=== PATIENT | male | born 1980 | race African-American/Black ===

== ENCOUNTER 2016-09-25 23:25 | Emergency (ER) | payer SELFPAY ==
[2016-09-26] MEDS ORDERED: OXYCODONE-ACETAMINOPHEN 5-325 MG TABLET PO ONE (02:30)
[2016-09-26] MEDS ORDERED: SULFAMETHOXAZOLE/TRIMETHOPRIM 800-160 MG TABLET PO ONE (02:31)
--- NOTE | 2016-09-26 02:32 | ER Document Report ---
ED General - General Chief Complaint: Abscess Stated Complaint: POSSIBLE ABCESS RIGHT ARM Notes: Patient is a 36-year-old male with past medical history of cocaine abuse who presents with 1 week of progressively worsening, severe pain of the right forearm with associated swelling. Says the pain is a constant, dull, throbbing pain. Touching the area worsens the pain. Nothing improves the pain. He has not seen his primary care physician regarding today's concerns. States he's had similar symptoms in the past with prior abscesses. Denies any associated fever, nausea, vomiting, or spreading redness from the area. TRAVEL OUTSIDE OF THE [place] IN LAST 30 DAYS: No - Related Data Allergies/Adverse Reactions: hydrocodone [Hydrocodone] Adverse Reaction (Mild, Verified 08/26/16 09:39) itching Past Medical History - General Information source: Patient - Social History Smoking Status: Current Every Day Smoker Chew tobacco use (# tins/day): No Frequency of alcohol use: None Drug Abuse: Marijuana Lives with: Spouse/Significant other Family History: Arthritis, CVA, DM, Hyperlipidemia, Hypertension Patient has suicidal ideation: No Patient has homicidal ideation: No - Past Medical History Cardiac Medical History: Reports: Hx Hypertension Pulmonary Medical History: Reports: Hx Asthma Renal/ Medical History: Denies: Hx Peritoneal Dialysis Psychiatric Medical History: Reports: Hx Post Traumatic Stress Disorder - Immunizations Hx Diphtheria, Pertussis, Tetanus Vaccination: Yes - 2008 Review of Systems - Review of Systems Notes: Constitutional: Negative for fever. HENT: Negative for sore throat. Eyes: Negative for visual changes. Cardiovascular: Negative for chest pain. Respiratory: Negative for shortness of breath. Gastrointestinal: Negative for abdominal pain, vomiting or diarrhea. Genitourinary: Negative for dysuria. Musculoskeletal: Negative for back pain. Skin: Positive for rash. Neurological: Negative for headaches, weakness or numbness. 10 point ROS negative except as marked above and in HPI. Physical Exam - Vital signs Vitals: Temp Pulse Resp BP Pulse Ox 98.4 F 90 18 163/110 H 99 09/25/16 23:34 09/25/16 23:34 09/25/16 23:34 09/25/16 23:34 09/25/16 23:34 Interpretation: Hypertensive Notes: PHYSICAL EXAMINATION: GENERAL: Well-appearing, well-nourished and in no acute distress. HEAD: Atraumatic, normocephalic. EYES: sclera anicteric, conjunctiva are normal. ENT: Moist mucous membranes. NECK: Normal range of motion LUNGS: Normal work of breathing HEART: 2+ radial pulses bilaterally EXTREMITIES: no pitting or edema. No cyanosis. NEUROLOGICAL: No focal neurological deficits. Moves all extremities spontaneously and on command. RMU motor and sensory function intact in the bilateral hands PSYCH: Normal mood, normal affect. SKIN: Warm, Dry, normal turgor, there is a 2 x 3 cm area of fluctuance on the medial aspect of the right forearm without surrounding erythema. Course - Re-evaluation Re-evalutation: 09/26/16 02:29 Patient presents with a right forearm abscess that was incised and drained at the bedside without difficulty. Otherwise well appearance, vitals within normal limits. He does not meet sepsis criteria and is otherwise very well in appearance. He will be discharged home with Bactrim.At this time will discharge with return precautions and follow-up recommendations. Verbal discharge instructions given a the bedside and opportunity for questions given. Medication warnings reviewed. Patient is in agreement with this plan and has verbalized understanding of return precautions and the need for primary care follow-up in the next 24-72 hours. - Vital Signs Vital signs: Temp Pulse Resp BP Pulse Ox 98.6 F 88 18 172/104 H 100 09/26/16 03:03 09/26/16 03:03 09/26/16 03:03 09/26/16 03:03 09/26/16 03:03 Procedures - Incision and Drainage Right Arm Type: Complex - Deep Anesthetic type: 1% Lidocaine mL's of anesthetic: 3 Blade size: 11 I&D procedure: Chlorprep applied Incision Method: Incision made by scalpel Amount/type of drainage: 10 cc purulent drainage Notes: 09/26/16 03:43 Deep abscess approximately 2 cm deep into the forearm requiring ultrasound guidance Discharge - Discharge Clinical Impression: Abscess of forearm Condition: Good Disposition: HOME, SELF-CARE Instructions: Trimethoprim-Sulfa ([facility]), Oral Narcotic Medication ([facility]), Abscess ([facility]) Additional Instructions: You were seen for an abscess that required drainage. Please clean this area with soap and water twice daily and apply a topical antibiotic. Dress the area after each cleaning. Please return if you develop fever, vomiting, the pain at the site worsens, you notice spreading redness from the area, or you have any other symptoms that are concerning to you. Prescriptions: Oxycodone HCl/Acetaminophen [Percocet 5-325 mg Tablet] 1 tab PO Q4H PRN #6 tablet PRN Reason: Sulfamethoxazole/Trimethoprim [Bactrim Ds Tablet] 2 tab PO BID #20 tablet
[2016-09-26 03:04] VITALS: BP 172/104
== END 2016-09-26 03:05 | disposition home or self-care (01) ==
LOC: ER 23:25
PROC: 0H9DXZZ Drainage of Right Lower Arm Skin, External Approach (ICD-10-PCS; principal; 2016-09-25)
DX: L02.413 Cutaneous abscess of right upper limb (principal); F17.200 Nicotine dependence, unspecified, uncomplicated; I10 Essential (primary) hypertension; J45.909 Unspecified asthma, uncomplicated
CPT/HCPCS: 99283

== ENCOUNTER 2016-10-15 11:45 | Emergency (ER) | payer SELFPAY ==
--- NOTE | 2016-10-15 12:11 | ER Document Report ---
ED Medical Screen (RME) - General Stated Complaint: ABSCESS ON RIGHT FOREARM Notes: patient is a 36 year old male p/w abscess on right forearm abscess that he has ahd for two weeks, he was previously i&d on 09/25, took all his antibiotics and the area never completely resolved to normal tissue, he admits that it has been firm and tender. states that it had become more swollen and tender since wednesday was taking abx from a friend as well (+) h/o MRSA abscess of right forearm with possible involvement of right elbow I have greeted and performed a rapid initial assessment of this patient. A comprehensive ED assessment and evaluation of the patient, analysis of test results and completion of the medical decision making process will be conducted by additional ED providers. TRAVEL OUTSIDE OF THE [place] IN LAST 30 DAYS: No - Related Data Allergies/Adverse Reactions: hydrocodone [Hydrocodone] Adverse Reaction (Mild, Verified 10/15/16 12:11) itching Past Medical History - Past Medical History Cardiac Medical History: Reports: Hx Hypertension Pulmonary Medical History: Reports: Hx Asthma Renal/ Medical History: Denies: Hx Peritoneal Dialysis Psychiatric Medical History: Reports: Hx Post Traumatic Stress Disorder - Immunizations Hx Diphtheria, Pertussis, Tetanus Vaccination: Yes - 2008
[2016-10-15] MEDS ORDERED: OXYCODONE-ACETAMINOPHEN 5-325 MG TABLET PO ONE ×2 (12:13→16:33)
[2016-10-15 12:29] LABS: ABSOLUTE BASOPHILS # (AUTO) 0.1 10^3/uL (0.0-0.2); ABSOLUTE EOSINOPHILS # (AUTO) 0.3 10^3/uL (0.0-0.6); ABSOLUTE LYMPHOCYTES (AUTO) 2.2 10^3/uL (0.5-4.7); ABSOLUTE MONOCYTES (AUTO) 0.8 10^3/uL (0.1-1.4); ABSOLUTE NEUT (AUTO) 8.3 10^3/uL (1.7-8.2); BASOPHILS % (AUTO) 0.5 % (0-2); EOSINOPHILS % (AUTO) 2.8 % (0-6); HEMATOCRIT 40.1 % (37.9-51.0); HEMOGLOBIN 12.5 g/dL (13.5-17.0); HGB HCT DIFFERENCE -2.6; LYMPHOCYTES % (AUTO) 18.8 % (13-45); MEAN CORPUSCULAR HGB CONC 31.2 g/dL (32.0-36.0); MEAN CORPUSCULAR VOLUME 74 fl (80-97); MONOCYTES % (AUTO) 6.9 % (3-13); RED BLOOD COUNT 5.45 10^6/uL (4.35-5.55); RED CELL DISTRIBUTION WIDTH 15.1 % (11.5-14.0); WHITE BLOOD COUNT 11.7 10^3/uL (4.0-10.5)
[2016-10-15 12:54] LABS: ALANINE AMINOTRANSFERASE 27 U/L (21-72); ALBUMIN 4.6 g/dL (3.5-5.0); ALKALINE PHOSPHATASE 77 U/L (38-126); ANION GAP 12 (5-19); ASPARTATE AMINO TRANSFERASE 24 U/L (17-59); BILIRUBIN,TOTAL 0.8 mg/dL (0.2-1.3); BLOOD UREA NITROGEN 8 mg/dL (7-20); CALCIUM 10.3 mg/dL (8.4-10.2); CARBON DIOXIDE 25 mmol/L (22-30); CHLORIDE 105 mmol/L (98-107); CREATININE RESULT 0.89 mg/dL (0.52-1.25); GLUCOSE 88 mg/dL (75-110); POTASSIUM 4.6 mmol/L (3.6-5.0); SODIUM 142.3 mmol/L (137-145); TOTAL PROTEIN 8.9 g/dL (6.3-8.2)
--- NOTE | 2016-10-15 15:49 | ER Document Report ---
ED General - General Chief Complaint: Abscess Stated Complaint: ABSCESS ON RIGHT FOREARM Mode of Arrival: Ambulatory Information source: Patient Notes: Patient is 36 yo black male with history of cocaine abuse who presents with reoccurrence of abscess to right forearm. Patient states he had it drained here on 09/25/16, completed all of the antibiotics prescribed. The day after his last dose, he noticed the swelling return and then 2 days after completion of antibiotic (Wednesday) patient noted pain and redness. He tried to drain the area at home but was unable to. He denies any fever/chills. TRAVEL OUTSIDE OF THE [place] IN LAST 30 DAYS: No - Related Data Allergies/Adverse Reactions: hydrocodone [Hydrocodone] Adverse Reaction (Mild, Verified 10/15/16 12:11) itching Past Medical History - Social History Smoking Status: Current Every Day Smoker Chew tobacco use (# tins/day): No Frequency of alcohol use: None Drug Abuse: None Family History: Arthritis, CVA, DM, Hyperlipidemia, Hypertension Patient has suicidal ideation: No Patient has homicidal ideation: No - Past Medical History Cardiac Medical History: Reports: Hx Hypertension Pulmonary Medical History: Reports: Hx Asthma Renal/ Medical History: Denies: Hx Peritoneal Dialysis Psychiatric Medical History: Reports: Hx Post Traumatic Stress Disorder - Immunizations Hx Diphtheria, Pertussis, Tetanus Vaccination: Yes - 2008 Review of Systems - Review of Systems Constitutional: See HPI EENT: No symptoms reported Cardiovascular: No symptoms reported Respiratory: No symptoms reported Gastrointestinal: No symptoms reported Genitourinary: No symptoms reported Male Genitourinary: No symptoms reported Musculoskeletal: No symptoms reported Skin: See HPI Hematologic/Lymphatic: No symptoms reported Neurological/Psychological: No symptoms reported Physical Exam - Vital signs Vitals: Resp 16 10/15/16 15:14 Interpretation: Hypertensive - Notes Notes: PHYSICAL EXAM: CONSTITUTIONAL: Alert and oriented, well-appearing and in no acute distress. HENT: Normocephalic, atraumatic. Ear canals without erythema or foreign body, TMs pearly cross with good bony landmarks. Nares clear without erythema, septal hematoma or deviation, airway patent. Oropharynx clear without erythema, tonsilar exudate or malocclusion. Trachea midline. Uvula midline. Moist mucous membranes. EYES: Pupils equal round and reactive to light, EOM intact. Sclera anicteric, conjunctiva are normal. No entrapment. NECK: supple without lymphadenopathy. No midline tenderness or paraspinous muscle spasms. No step-offs or deformities. ROM intact. HEART: Regular rate and rhythm without murmurs. LUNGS: CTAB and equal. No wheezes, rales or rhonchi. GI: Normactive bowel sounds. Nontender, non-distended. No organomegaly. no CVAT. C[employer]ER: External exam normal. No rashes or lesions. No vaginal discharge or vaginal bleeding. Cervix without lesions. No cervical motion tenderness. BACK: nontender, no paraspinous spasm, 5+/5 strengths, DTRs 2+, SLR -. EXTREMITIES: Normal range of motion, no pitting edema. No cyanosis. Cap Refill < 3 seconds. NEURO: Cranial nerves grossly intact. Normal sensory/motor exams. PSYCH: Normal mood, normal affect. SKIN: Warm and dry. Normal turgor. No rashes or lesions noted. Course - Re-evaluation Re-evalutation: 10/15/16 15:51 I have consulted with the supervisory physician per [facility] guidelines. Patient seen and examined. 2x3 cm round area of fluctuance, erythema and swelling noted to medial surface of right forearm. Lab work obtained. Xray negative for subcutaneous gas. 10/15/16 16:35 I&D performed, area was 3-4 cm deep. Approximately 10 mL of purulent drainage. wound culture obtained. Iodoform gauze used to pack area. Dressing applied. Discussed wound care with patient. Will discharge on oral antibiotics, advised to return to ED for wound check in 2-3 days and for repacking. Also discussed return precautions. Discharged home in stable condition, patient gave verbal agreement on management and plan. - Vital Signs Vital signs: Temp Pulse Resp BP Pulse Ox 16 10/15/16 15:14 - Laboratory Result Diagrams: 10/15/16 12:15 10/15/16 12:15 Laboratory results interpreted by me: 10/15/16 10/15/16 12:15 12:15 WBC 11.7 H Hgb 12.5 L MCV 74 L MCH 23.0 L MCHC 31.2 L RDW 15.1 H Absolute Neutrophils 8.3 H Calcium 10.3 H Total Protein 8.9 H - Diagnostic Test Radiology reviewed: Image reviewed, Reports reviewed Procedures - Incision and Drainage Right Medial Arm Time completed: 16:15 Type: Complex Anesthetic type: 1% Lidocaine w/epi mL's of anesthetic: 10 Blade size: 11 I&D procedure: Betadine prep applied Incision Method: Incision made by scalpel Amount/type of drainage: 10 ml of purulent drainage noted Notes: 10/15/16 16:34 wound cultures obtained 10/15/16 16:35 Patient tolerated procedure well. Adult Front & Back picture: 1 - 2x3 cm round area of fluctuance, after incision and drainage, area extened 4 cm deep Discharge - Discharge Clinical Impression: Abscess, Abscess of forearm Leukocytosis Qualifiers: Leukocytosis type: unspecified Qualified Code(s): D72.829 - Elevated white blood cell count, unspecified Condition: Stable Disposition: HOME, SELF-CARE Additional Instructions: return to this department in 2-3 days for wound re-check and repacking. Keep the area covered, clean and dry. ABSCESS: You have an abscess (boil). This a pus-forming infection, usually due to staph. Some boils may be left to drain on their own, but most require lancing. From the time the tender lump first appears, it may be three or four days before the abscess is ready to ruth. Local heat and rest help at this stage of treatment. An antibiotic may prevent spread of the infection. Once the abscess is opened, packing may be placed into it. This is done so pus is not sealed inside by premature closure of the cavity. The packing will be removed at your follow-up visit or you may be advised to remove it yourself at home. Sometimes this packing must be replaced a few times during healing. The wound will heal with surprisingly little scar. Depending on the size and location of an abscess, healing can take one to four weeks. You may shower and wash the area around the incision site two or three times a day. Antibiotics may be prescribed, but are usually not necessary after an abscess has been drained. If you develop fever, chills, worsening pain, or increasing swelling in the area, call the doctor or return immediately. POST INCISION AND DRAINAGE: You have had an incision made to allow drainage of an abscess. The incision must remain open so that pus and debris can drain from the wound. If the abscess cavity is large, packing is placed. This keeps the tissues from collapsing and trapping pus inside, while the body shrinks the cavity. The packing may need to be replaced every day or two. The physician will instruct you on the packing. Keep a bulky dressing over the area. Replace it if it becomes saturated with blood or pus. Do not disturb the packing (if present). You may shower and cleanse the area with gentle soap and warm water two or three times a day. Local warmth may be soothing, and may promote faster healing. Return if you develop high fever or chills, or if you note spreading redness, increasing swelling, or increasing tenderness. MRSA CELLULITIS: You have an infection of your skin and underlying soft tissues called cellulitis. This is due to bacteria, which can enter through any break in the skin, or even through an irritated hair follicle. Untreated, cellulitis will usually worsen and may form an abscess which requires draining. Although many bacterial organisms can cause cellulitis and abscess formations, the most likely bacteria is Methicillin-Resistant Staph Aureus, or MRSA for short. Antibiotics are required. Usually, warm packs or warm soaks, and elevation of the infected area are recommended. You should start getting better within 24 to 36 hours. Most infections respond quickly to the right medication. Follow-up care is important, however, to check for abscess (boil) formation, unsuspected foreign body, or resistant infection. If you develop fever, chills, or if the area of infection is becoming rapidly more swollen or painful, call the doctor at once. ORAL NARCOTIC MEDICATION: You have been given a prescription for pain control. This medication is a narcotic. It's best taken with food, as nausea can result if taken on an empty stomach. Don't operate machinery or drive within six hours of taking this medication. Do not combine this medicine with alcohol, or with any medication which can cause sedation (such as cold tablets or sleeping pills) unless you get permission from the physician. Narcotics tend to cause constipation. If possible, drink plenty of fluids and eat a diet high in fiber and fruits. CEPHALEXIN: The antibiotic you've been prescribed is a member of the cephalosporin class. This type of antibiotic covers a wide variety of infections, including those of the skin, lungs, and urinary tract. It's useful for staph infections. This antibiotic is slightly similar to the penicillin family. In rare cases , a person who is allergic to penicillin will also be allergic to this medication. If you have had a severe allergic reaction to penicillin, and have not taken this antibiotic since that time, notify your doctor. Antibiotics which cover many germs ("broad spectrum" antibiotics) are more likely to cause diarrhea or "yeast" infections. Women prone to vaginal yeast problems may suffer an attack after taking this antibiotic. In infants, oral thrush (white spots "stuck" on the cheek) or yeast diaper rash may result. See your doctor if these problems occur. Call at once if you develop itching, hives , shortness of breath, or lightheadedness. FOLLOW-UP CARE: Most simple abscesses will not require a follow up visit. If you had packing placed in the abscess, remove it as instructed by the physician. If you have been referred to a physician for follow-up care, call the physicians office for an appointment as you were instructed or within the next two days. If you experience worsening or a significant change in your symptoms, return to the Emergency Department at any time for re-evaluation. Prescriptions: Oxycodone HCl/Acetaminophen [Percocet 5-325 mg Tablet] 1 tab PO Q6HP PRN #10 tablet PRN Reason: Cephalexin [Cephalexin 500 MG Tablet] 500 mg PO Q12 #20 tablet
[2016-10-15] MEDS ORDERED: LIDOCAINE 1%/EPINEPHRINE INJ 20 ML VIAL INJ ONE (16:04)
[2016-10-15 17:19] VITALS: BP 160/78
== END 2016-10-15 17:19 | disposition home or self-care (01) ==
LOC: ER 11:45
PROC: 0H9DXZZ Drainage of Right Lower Arm Skin, External Approach (ICD-10-PCS; principal; 2016-10-15)
DX: L02.413 Cutaneous abscess of right upper limb (principal); D72.829 Elevated white blood cell count, unspecified; I10 Essential (primary) hypertension; J45.909 Unspecified asthma, uncomplicated; F17.200 Nicotine dependence, unspecified, uncomplicated; Z98.890 Other specified postprocedural states
CPT/HCPCS: 99283; 36415; 87070; 87205; 85025; 87075; 87077; 80053; 73090; 10060; J3490

== ENCOUNTER 2016-11-03 18:58 | Emergency (ER) | payer SELFPAY ==
[2016-11-03] MEDS ORDERED: IPRATROPIUM/ALBUTEROL 0.5-2.5 MG/3 ML AMPUL NEB ONE ×3 (19:21→19:36)
[2016-11-03] MEDS ORDERED: NALOXONE HCL INJ 2 MG/2 ML DISP.SYRIN IV ONE (19:35)
--- NOTE | 2016-11-03 19:38 | ER Document Report ---
ED General - General Chief Complaint: Altered Mental Status Stated Complaint: POSSIBLE OVERDOSE Information source: Patient, Emergency Med Personnel Notes: This is a 36-year-old -[place] male with a history of asthma and hypertension and drug abuse including cocaine who presents after an episode of altered mental status. States that he "took a pill" of what he thinks may have been Percocet that had fentanyl in at about 5 PM. He states that he then passed out. EMS reports that he was unresponsive at the scene and did have emesis after administration of 2 mg of Narcan. Patient did became become awake and alert after the Narcan. At this point he denies any pain. He denies any recent illnesses or fevers. He does admit to drug abuse, including cocaine, and last used cocaine yesterday. No chest pain. TRAVEL OUTSIDE OF THE [place] IN LAST 30 DAYS: No - Related Data Allergies/Adverse Reactions: hydrocodone [Hydrocodone] Adverse Reaction (Mild, Verified 10/15/16 12:11) itching Past Medical History - General Information source: Patient, FOR[facility]LY [facility], 1928–1983 Records - Social History Smoking Status: Current Every Day Smoker Frequency of alcohol use: Occasional Drug Abuse: Cocaine, Methamphetamine, Prescription drugs Family History: Arthritis, CVA, DM, Hyperlipidemia, Hypertension - Past Medical History Cardiac Medical History: Reports: Hx Hypertension Pulmonary Medical History: Reports: Hx Asthma Renal/ Medical History: Denies: Hx Peritoneal Dialysis Psychiatric Medical History: Reports: Hx Post Traumatic Stress Disorder - Immunizations Hx Diphtheria, Pertussis, Tetanus Vaccination: Yes - 2008 Review of Systems - Review of Systems Constitutional: denies: Chills, Fever, Recent illness EENT: No symptoms reported Cardiovascular: No symptoms reported. denies: Chest pain, Palpitations Respiratory: No symptoms reported Gastrointestinal: No symptoms reported Musculoskeletal: No symptoms reported Neurological/Psychological: Anxiety Physical Exam - Vital signs Vitals: Resp Pulse Ox 18 94 11/03/16 19:56 11/03/16 19:56 - Notes Notes: PHYSICAL EXAMINATION: GENERAL: well developed adult male, somewhat sleepy, but conversant HEAD: Atraumatic, normocephalic. EYES: Pupils equal round and reactive to light, extraocular movements intact, sclera anicteric, conjunctiva are normal. ENT: nares patent, oropharynx clear without exudates. Moist mucous membranes. NECK: Normal range of motion, supple without lymphadenopathy LUNGS: Breath sounds clear to auscultation bilaterally and equal. No wheezes rales or rhonchi. HEART: Regular rate and rhythm without murmurs ABDOMEN: Soft, nontender, normoactive bowel sounds. No guarding, no rebound. No masses appreciated. EXTREMITIES: Normal range of motion, no pitting or edema. No cyanosis. NEUROLOGICAL: Cranial nerves grossly intact. Normal speech. No gross focal motor or sensory deficits appreciated PSYCH: Normal mood, normal affect. SKIN: Warm, Dry, normal turgor, no rashes or lesions noted. Course - Re-evaluation Re-evalutation: 11/04/16 01:05 Patient has denied any chest pain here in the emergency department. His initial troponin was noted to be elevated at 0.162. This was repeated 2 hours later and noted to increase to 0.331. This patient was discussed with the hospitalist Dr. Arias at [facility] who does accept the patient for transfer however there are no beds available at this time. I also discussed with the transfer center at 01/06 and nursing attendant at 0100... Dr. Hamilton agrees to transfer to [facility]. However, there are no beds available at [facility] at this point. Pt will await bed availability. 11/04/16 04:16 Patient resting comfortably and hemodynamically stable. Still awaiting bed availability for transfer. 11/04/16 05:03 Patient resting comfortably vital signs stable. Awaiting bed availability for transfer.Care transferred to Dr. Burden. - Vital Signs Vital signs: Temp Pulse Resp BP Pulse Ox 16 122/62 94 11/04/16 03:31 11/04/16 03:01 11/04/16 03:31 - Laboratory Result Diagrams: 11/03/16 19:45 11/03/16 21:40 Laboratory results interpreted by me: 11/03/16 11/03/16 11/03/16 19:20 19:45 21:40 RBC 5.68 H MCV 75 L MCH 24.0 L RDW 15.5 H Monocytes % 2.7 L Carbonic Acid 1.40 H ABG pCO2 46.5 H ABG pO2 48.7 L ABG HCO3 26.2 H ABG Total CO2 27.6 H ABG O2 Saturation 82.9 L Sodium 145.3 H Anion Gap 21 H Creatinine 1.84 H Est GFR ( Amer) 51 L Est GFR (Non-Af Amer) 42 L Total Bilirubin 1.9 H Total Protein 9.2 H Urine Protein Urine Ketones Urine Ascorbic Acid Salicylates < 1.0 L Acetaminophen < 10 L 11/03/16 22:09 RBC MCV MCH RDW Monocytes % Carbonic Acid ABG pCO2 ABG pO2 ABG HCO3 ABG Total CO2 ABG O2 Saturation Sodium Anion Gap Creatinine Est GFR ( Amer) Est GFR (Non-Af Amer) Total Bilirubin Total Protein Urine Protein 30 H Urine Ketones TRACE H Urine Ascorbic Acid 40 H Salicylates Acetaminophen - Diagnostic Test Radiology reviewed: Reports reviewed - Chest x-ray with no acute process - EKG Interpretation by Me EKG shows normal: Sinus rhythm Rate: Tachycardia When compared to previous EKG there are: Previous EKG unavailable Additional EKG results interpreted by me: 11/04/16 04:19 nonspecific t changes Critical Care Note - Critical Care Note Total time excluding time spent on procedures (mins): 35 Comments: minutes of critical care time spent in direct contact evaluating and reevaluating the patient, treating symptoms, reviewing labs and studies and speaking with family and consultants excluding any procedures Discharge - Discharge Clinical Impression: Elevated troponin, Substance abuse, Cocaine abuse Overdose Qualifiers: Encounter type: initial encounter Injury intent: accidental or unintentional Qualified Code(s): T50.901A - Poisoning by unspecified drugs, medicaments and biological substances, accidental (unintentional), initial encounter Condition: Stable Disposition: [facility]
[2016-11-03 19:55] LABS: ARTERIAL BLOOD BASE EXCESS 0.4 mmol/L; ARTERIAL BLOOD O2 SATURATION 82.9 % (94-98)
[2016-11-03 20:00] LABS: ABSOLUTE EOSINOPHILS # (AUTO) 0.2 10^3/uL (0.0-0.6); ABSOLUTE MONOCYTES (AUTO) 0.2 10^3/uL (0.1-1.4); ABSOLUTE NEUT (AUTO) 5.2 10^3/uL (1.7-8.2); BASOPHILS % (AUTO) 0.6 % (0-2); EOSINOPHILS % (AUTO) 2.5 % (0-6); HEMATOCRIT 42.5 % (37.9-51.0); HEMOGLOBIN 13.7 g/dL (13.5-17.0); HGB HCT DIFFERENCE -1.4; LYMPHOCYTES % (AUTO) 26.5 % (13-45); MEAN CORPUSCULAR HGB CONC 32.2 g/dL (32.0-36.0); MEAN CORPUSCULAR VOLUME 75 fl (80-97); MONOCYTES % (AUTO) 2.7 % (3-13); RED BLOOD COUNT 5.68 10^6/uL (4.35-5.55); RED CELL DISTRIBUTION WIDTH 15.5 % (11.5-14.0); SEGMENTED NEUTROPHILS % (AUTO) 67.7 % (42-78); WHITE BLOOD COUNT 7.7 10^3/uL (4.0-10.5)
[2016-11-03 22:13] LABS: ALANINE AMINOTRANSFERASE 28 U/L (21-72); ALCOHOL < 10 mg/dL (NONE DETECTED); ALKALINE PHOSPHATASE 61 U/L (38-126); ASPARTATE AMINO TRANSFERASE 49 U/L (17-59); BILIRUBIN,TOTAL 1.9 mg/dL (0.2-1.3); BLOOD UREA NITROGEN 20 mg/dL (7-20); CALCIUM 10.1 mg/dL (8.4-10.2); CREATININE RESULT 1.84 mg/dL (0.52-1.25); GLUCOSE 89 mg/dL (75-110); POTASSIUM 3.7 mmol/L (3.6-5.0); TOTAL PROTEIN 9.2 g/dL (6.3-8.2)
[2016-11-03 22:20] LABS: CARBON DIOXIDE 22 mmol/L (22-30); CHLORIDE 102 mmol/L (98-107); SODIUM 145.3 mmol/L (137-145)
[2016-11-03 22:22] LABS: ANION GAP 21 (5-19)
[2016-11-03 22:26] LABS: APPEARANCE,URINE SLIGHTLY-CLOUDY; BILIRUBIN,URINE NEGATIVE (NEGATIVE); GLUCOSE, URINE NEGATIVE (NEGATIVE); KETONES,URINE TRACE mg/dL (NEGATIVE); LEUKOCYTE ESTERASE,URINE NEGATIVE (NEGATIVE); NITRITE,URINE NEGATIVE (NEGATIVE); PROTEIN,URINE 30 mg/dL (NEGATIVE); URINE SPECIFIC GRAVITY 1.025; UROBILINOGEN,URINE NEGATIVE mg/dL (<2.0)
[2016-11-03 22:35] LABS: URINE BARBITURATES SCREEN NEGATIVE; URINE METHADONE SCREEN NEGATIVE; URINE OPIATES LOW UNCONFIRMED POSITIVE; URINE PHENCYCLIDINE SCREEN NEGATIVE
--- NOTE | 2016-11-03 22:44 | EKG REPORT ---
SEVERITY:- BORDERLINE ECG - SINUS TACHYCARDIA BORDERLINE T ABNORMALITIES, INFERIOR LEADS BORDERLINE PROLONGED QT INTERVAL : Confirmed by: David Jordan 03-Nov-2016 22:43:15
[2016-11-03] MEDS ORDERED: ASPIRIN 81 MG TABLET, CHEWABLE PO ONE (23:53)
[2016-11-03] MEDS ORDERED: LORAZEPAM INJ 2 MG/1 ML VIAL IV ONE (23:54)
[2016-11-04] MEDS ORDERED: NORMAL SALINE 1000 ML 1,000 ML IV ONE (07:13)
--- NOTE | 2016-11-04 09:34 | EKG REPORT ---
SEVERITY:- ABNORMAL ECG - SINUS TACHYCARDIA PROLONGED QT INTERVAL : Confirmed by: David Jordan 04-Nov-2016 09:33:31
[2016-11-04 10:37] LABS: HEMOGLOBIN 12.2 g/dL (13.5-17.0); HGB HCT DIFFERENCE -1.4; MEAN CORPUSCULAR HEMOGLOBIN 23.8 pg (27.0-33.4); MEAN CORPUSCULAR HGB CONC 32.1 g/dL (32.0-36.0); MEAN CORPUSCULAR VOLUME 74 fl (80-97); RED BLOOD COUNT 5.13 10^6/uL (4.35-5.55); RED CELL DISTRIBUTION WIDTH 14.7 % (11.5-14.0)
[2016-11-04] MEDS ORDERED: ACETAMINOPHEN 325 MG TABLET PO ONE (10:44)
[2016-11-04 10:57] LABS: ANION GAP 16 (5-19); BLOOD UREA NITROGEN 14 mg/dL (7-20); CALCIUM 9.7 mg/dL (8.4-10.2); CARBON DIOXIDE 23 mmol/L (22-30); CHLORIDE 103 mmol/L (98-107); CREATININE RESULT 1.15 mg/dL (0.52-1.25); GLUCOSE 93 mg/dL (75-110); SODIUM 142.3 mmol/L (137-145)
[2016-11-04 11:01] LABS: WHITE BLOOD COUNT 24.7 10^3/uL (4.0-10.5)
[2016-11-04 11:35] VITALS: BP 149/88
--- NOTE | 2016-11-04 11:51 | PSYCHOLOGICAL NOTE ---
Psych Note - Psych Note Psych Note: Patient is a 36 year old male who presented overnight with c/o overdose. Patient is being medically transferred to another care facility due to elevated troponin. Patient is a known substance abuser, which per medical, has likely contributed to his medical conditions. Did provide resources prior to transfer. Thank you kindly for this consultation request.
== END 2016-11-04 12:28 | disposition short-term general hospital (02) ==
LOC: ER 18:58
DX: T50.901A Poisoning by unspecified drugs, medicaments and biological substances, accidental (unintentional), initial encounter (principal); R74.8 Abnormal levels of other serum enzymes; R00.0 Tachycardia, unspecified; F14.10 Cocaine abuse, uncomplicated; F15.10 Other stimulant abuse, uncomplicated; R11.10 Vomiting, unspecified; I10 Essential (primary) hypertension; F17.200 Nicotine dependence, unspecified, uncomplicated; J45.909 Unspecified asthma, uncomplicated
CPT/HCPCS: 93005 ×2; 94640 ×2; 99291; 36415; 80307 ×4; 82803; 85025; 85027; 80048; 80053; 81001; 84484; 71010; 93010 ×2; 36600; J7030; J7620

== ENCOUNTER 2017-10-19 22:28 | Emergency (ER) | payer OTHER ==
[2017-10-19 22:32] VITALS: BP 172/92
[2017-10-19] MEDS ORDERED: DIPH/PERTUSS(ACELL)/TETANUS VAC/PF 0.5 ML SYR (>=10YO) IM ONE (23:28)
--- NOTE | 2017-10-19 23:28 | ER Document Report ---
HPI - HPI Patient complains to provider of: laceration Pain Level: 4 Context: Patient is a 37-year-old male who presents emergency department with a chief complaint of laceration to his left thumb. Patient states that he was picking up a trash bag at work when a lid from a can sliced open his thumb. Patient states that he held pressure to put on a Band-Aid and then came to the ER after he finished his shift. Patient states that this happened approximately at 6 PM. Tetanus is not up-to-date. Bleeding is controlled denies any numbness or tingling, weakness, difficulty moving the digit. - CONSTITUTIONAL Constitutional: DENIES: Fever, Chills - EENT EENT: DENIES: Sore Throat, Ear Pain, Eye problems - NEURO Neurology: DENIES: Headache, Weakness, Vision blurred, Dizzinesss / Vertigo - CARDIOVASCULAR Cardiovascular: DENIES: Chest pain - RESPIRATORY Respiratory: DENIES: Trouble Breathing, Coughing - GASTROINTESTINAL Gastrointestinal: DENIES: Abdominal Pain - URINARY Urinary: DENIES: Dysuria - MUSCULOSKELETAL Musculoskeletal: REPORTS: Extremity pain - R thumb Past Medical History - Social History Smoking Status: Unknown if Ever Smoked Family History: Arthritis, CVA, DM, Hyperlipidemia, Hypertension Patient has suicidal ideation: No Patient has homicidal ideation: No - Past Medical History Cardiac Medical History: Reports: Hx Hypertension Pulmonary Medical History: Reports: Hx Asthma Renal/ Medical History: Denies: Hx Peritoneal Dialysis Psychiatric Medical History: Reports: Hx Post Traumatic Stress Disorder - Immunizations Hx Diphtheria, Pertussis, Tetanus Vaccination: Yes - 2008 Vertical Provider Document - CONSTITUTIONAL Agree With Documented VS: Yes Notes: PHYSICAL EXAM GENERAL: Alert, interacts well. 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 No tendon involvement. Full ROM of affected right thumbMoves all 4 extremities spontaneously. No edema, radial and dorsalis pedis pulses 2/4 bilaterally. No cyanosis. NEUROLOGICAL: Alert and oriented x4. Normal speech. PSYCH: Normal affect, normal mood. SKIN: Warm, dry, normal turgor. superficial radial side of the thumb flap laceration without bleeding, no dermal involvement - INFECTION CONTROL TRAVEL OUTSIDE OF THE [place] IN LAST 30 DAYS: No - RESPIRATORY O2 Sat by Pulse Oximetry: 97 Course - Re-evaluation Re-evalutation: Patient is a 37-year-old male is hemodynamically stable, no acute distress and afebrile. No evidence of tendon involvement. Digit is neurovascularly intact. Wound was cleaned and dressed using Dermabond. Patient educated on wound care and strict return precautions. Patient stable for discharge home - Vital Signs Vital signs: Temp Pulse Resp BP Pulse Ox 98.8 F 90 16 172/92 H 97 10/19/17 22:31 18 22:31 10/19/17 22:31 10/19/17 22:31 10/19/17 22:31 Procedures - Laceration/Wound Repair Left Thumb Wound length (cm): 1.5 Wound's Depth, Shape: Superficial, Flap Laceration pre-procedure: Shur-Clens applied Wound explored: Clean, No foreign body removed Wound Repaired With: Dermabond Discharge - Discharge Clinical Impression: Laceration Condition: Good Disposition: HOME, SELF-CARE Additional Instructions: The wound has been closed with glue. Please do not pick at the at the wound. Do not cover it with any kind of antibiotic ointment as this can cause the glue to loosen. Return immediately if you develop spreading redness around the wound , pus from the wound, worsening pain, or a fever of >100.4. Keep the area clean and dry. Forms: Elevated Blood Pressure, Return to Work Referrals: REGINE GUEVARA MD [COMMUNITY BASED STAFF] - Follow up as needed
== END 2017-10-19 23:45 | disposition home or self-care (01) ==
LOC: ER 22:28
DX: S61.012A Laceration without foreign body of left thumb without damage to nail, initial encounter (principal); W45.8XXA Other foreign body or object entering through skin, initial encounter; Y99.0 Civilian activity done for income or pay; I10 Essential (primary) hypertension; J45.909 Unspecified asthma, uncomplicated
CPT/HCPCS: 90471; 90715; 99282

== ENCOUNTER 2018-08-15 10:07 | Emergency (ER) | payer SELFPAY ==
[2018-08-15] MEDS ORDERED: ONDANSETRON 4 MG TAB.RAPDIS PO ONE (10:19)
--- NOTE | 2018-08-15 10:19 | ER Document Report ---
ED Medical Screen (RME) - General Chief Complaint: Abscess Stated Complaint: POSSIBLE ABSCESS Time Seen by Provider: 08/15/18 10:13 Mode of Arrival: Ambulatory Information source: Patient, [facility] Records Notes: 38-year-old male with hypertension (not currently taking his lisinopril), asthma , PTSD, prescription drug abuse, recurrent abscess, MRSA presents with right forearm pain, swelling that started 3 days prior to arrival after burning his right forearm. Patient denies fever, chills but admits to associated nausea without vomiting. I have greeted and performed a rapid initial assessment of this patient. A comprehensive ED assessment and evaluation of the patient, analysis of test results and completion of medical decision making process we will be contacted by additional ED providers. PHYSICAL EXAMINATION: Vital signs reviewed-hypertensive, afebrile GENERAL: Well-appearing, well-nourished and in no acute distress. LUNGS: No respiratory distress Musculoskeletal: Normal range of motion NEUROLOGICAL: Normal speech, normal gait. PSYCH: Normal mood, normal affect. SKIN: Right forearm with area of induration, fluctuance and pain with palpation. TRAVEL OUTSIDE OF THE [place] IN LAST 30 DAYS: No - HPI Onset: Other Onset/Duration: Gradual Quality of pain: Throbbing Severity: Moderate Associated Symptoms: Nausea. denies: Fever, Vomiting Exacerbated by: Denies Relieved by: Denies Similar symptoms previously: Yes Recently seen / treated by doctor: No - Related Data Smoking: Non-smoker Frequency of alcohol use: None Drug Abuse: Prescription drugs Allergies/Adverse Reactions: hydrocodone [Hydrocodone] Adverse Reaction (Mild, Verified 08/15/18 10:08) itching Past Medical History - Past Medical History Cardiac Medical History: Reports: Hx Hypertension Pulmonary Medical History: Reports: Hx Asthma Renal/ Medical History: Denies: Hx Peritoneal Dialysis Psychiatric Medical History: Reports: Hx Post Traumatic Stress Disorder - Immunizations Hx Diphtheria, Pertussis, Tetanus Vaccination: Yes - 2008 Physical Exam - Vital signs Vitals: Temp Pulse Resp BP Pulse Ox 98.9 F 84 14 178/91 H 99 08/15/18 10:11 08/15/18 10:11 08/15/18 10:11 08/15/18 10:11 08/15/18 10:11 Course - Vital Signs Vital signs: Temp Pulse Resp BP Pulse Ox 98.9 F 84 14 178/91 H 99 08/15/18 10:11 08/15/18 10:11 08/15/18 10:11 08/15/18 10:11 08/15/18 10:11
--- NOTE | 2018-08-15 10:45 | ER Document Report ---
ED General - General Chief Complaint: Abscess Stated Complaint: POSSIBLE ABSCESS Time Seen by Provider: 08/15/18 10:13 Mode of Arrival: Ambulatory Notes: Patient is a 38-year-old male that presents to the emergency department for chief complaint of right arm abscess. Patient states he first noticed this about 4 days ago, got progressively worse over the period of time with associated nausea but no vomiting. Denies having any fevers, chills, night sweats, chest pain, or swelling in his armpit. He has had MRSA in the past, is required I&D's in the past as well. He currently rates his pain as a 9 out of 10, describes as a constant throbbing sensation, worse with any palpation over his right arm. Denies any numbness, tingling or weakness in his hand. Past Medical History: Hypertension, history of MRSA Past Surgical History: Incision and drainage of abscess Social History: Admits to smoking cigarettes daily, denies chronic alcohol use, or illicit drug use. Right forearm, has Family History: Reviewed and noncontributory for presenting illness Allergies: Reviewed, see documented allergy list. REVIEW OF SYSTEMS: Other than noted above, the 12 point review of systems was reviewed with the patient and were negative, all pertinent findings are included in the HPI. PHYSICAL EXAMINATION: Vital signs reviewed, nursing noted reviewed. GENERAL: Well-appearing, well-nourished and in no acute distress. HEAD: Atraumatic, normocephalic. EYES: Eyes appear normal, extraocular movements intact, sclera anicteric, conjunctiva are normal. ENT: nares patent, oropharynx clear without exudates. Moist mucous membranes. NECK: Normal range of motion, supple without lymphadenopathy LUNGS: Breath sounds clear to auscultation bilaterally and equal. No wheezes rales or rhonchi. HEART: Regular rate and rhythm without murmurs ABDOMEN: Soft, nontender, normoactive bowel sounds. No rebound, guarding, or rigidity. No masses appreciated. EXTREMITIES: Large area of induration measuring naproxen 5 cm x 5 cm, with a central area of fluctuance, consistent with an abscess, there is no axillary lymphadenopathy appreciated or tenderness. There is no lymphangitis noted on the skin either. Patient has good range of motion, and strength distally, sensation intact distally, cap refill less than 3 seconds in all digits. The rest of his extremity exam is grossly unremarkable. And nontender, good range of motion, no pitting or edema. NEUROLOGICAL: No focal neurological deficits. Moves all extremities spontaneously Motor and sensory grossly intact on exam. PSYCH: Normal mood, normal affect. SKIN: Warm, Dry, normal turgor, no rashes or lesions noted on exposed skin TRAVEL OUTSIDE OF THE [place] IN LAST 30 DAYS: No - Related Data Allergies/Adverse Reactions: hydrocodone [Hydrocodone] Adverse Reaction (Mild, Verified 08/15/18 10:08) itching Past Medical History - General Information source: Patient, [facility] Records - Social History Smoking Status: Current Every Day Smoker Frequency of alcohol use: None Drug Abuse: Prescription drugs Family History: Arthritis, CVA, DM, Hyperlipidemia, Hypertension Patient has suicidal ideation: No Patient has homicidal ideation: No - Past Medical History Cardiac Medical History: Reports: Hx Hypertension Pulmonary Medical History: Reports: Hx Asthma Renal/ Medical History: Denies: Hx Peritoneal Dialysis Psychiatric Medical History: Reports: Hx Post Traumatic Stress Disorder Past Surgical History: Reports: Hx Orthopedic Surgery - Abscess removal - Immunizations Hx Diphtheria, Pertussis, Tetanus Vaccination: Yes - 2008 Physical Exam - Vital signs Vitals: Temp Pulse Resp BP Pulse Ox 98.9 F 84 14 178/91 H 99 08/15/18 10:11 08/15/18 10:11 08/15/18 10:11 08/15/18 10:11 08/15/18 10:11 Course - Re-evaluation Re-evalutation: Patient seen and examined vital signs reviewed. Clinical exam was convincing of right forearm abscess, this was reviewed under ultrasound, did demonstrate significant abscess pocket Patient was treated with incision and drainage, as described, patient given a Percocet for his pain after the procedure, also given first dose of Bactrim and Keflex The patient was re-evaluated and was improved Evaluation was most consistent with right forearm abscess with associated cellulitis, patient prescribed 7 days of Keflex and Bactrim, is also given a short prescription for Percocet to take for his pain, he is advised to follow- up with a general surgeon, and to monitor for signs of worsening. Results were discussed with the patient at this point, after careful consideration I feel that that patient can be discharged from the emergency department, the patient was educated treatments and reasons to return to the emergency department based on their presumed diagnosis as noted above, they were advised to followup with a primary care physician in 2-3 days. Patient was agreeable to plan of care. *Note is created using voice recognition software and may contain spelling, syntax or grammatical errors. - Vital Signs Vital signs: Temp Pulse Resp BP Pulse Ox 98.9 F 84 14 178/91 H 99 08/15/18 10:11 08/15/18 10:11 08/15/18 10:11 08/15/18 10:11 08/15/18 10:11 Procedures - Incision and Drainage Right Mid- Arm Type: Complex Anesthetic type: 1% Lidocaine mL's of anesthetic: 5 Blade size: 11 I&D procedure: Chlorprep applied Incision Method: Incision made by scalpel Amount/type of drainage: 15ml Notes: Patient skin was prepped and draped in the usual sterile fashion, with universal precautions, the abscess is identified, and area of maximum fluctuance , was incised with 11 blade, making a 1.5 cm incision, significant purulent drainage was obtained, the wound was irrigated, then probed, and broke up loculations, with more purulent drainage, wound was then irrigated more with sterile saline, patient tolerated this well. Sterile dressing applied. No complications. Discharge - Discharge Clinical Impression: Abscess of arm, right Condition: Stable Disposition: HOME, SELF-CARE Instructions: Abscess ([facility]), Post Incision and Drainage Additional Instructions: Please follow-up with your primary care physician, or with the surgeon that is listed on her discharge paperwork, monitor for symptoms of fever, worsening pain or worsening swelling, take the antibiotics as prescribed, you will have some drainage over the next few days, as this feels. If you have any concerns or worsening symptoms, do not hesitate to return to the emergency department. Prescriptions: Cephalexin Monohydrate [Keflex 500 mg Capsule] 500 mg PO Q6H 7 Days #28 capsule Oxycodone HCl/Acetaminophen [Percocet 5-325 mg Tablet] 1 tab PO Q8H PRN #10 tab PRN Reason: arm pain Sulfamethoxazole/Trimethoprim [Bactrim Ds Tablet] 1 each PO BID #14 tablet Referrals: [facility] [Provider Group] - Follow up in 3-5 days (primary care.) BILLY HITCHCOCK MD [ACTIVE STAFF] - Follow up in 3-5 days (follow-up with surgeon )
[2018-08-15] MEDS: LIDOCAINE 1% INJ-PF (10 MG/ML) 30 ML SDV INJ ONE ×2 (10:49→11:12)
[2018-08-15] MEDS ORDERED: OXYCODONE-ACETAMINOPHEN 5-325 MG TABLET PO ONE (11:19)
[2018-08-15] MEDS ORDERED: SULFAMETHOXAZOLE/TRIMETHOPRIM 800-160 MG TABLET PO ONE (11:20)
[2018-08-15] MEDS ORDERED: CEPHALEXIN 500 MG CAPSULE PO ONE (11:20)
[2018-08-15] MEDS ORDERED: HYDROCODONE/ACETAMINOPHEN 5-325 MG (6 TAB/ER DISP) PO PRN (11:20)
[2018-08-15 12:02] VITALS: BP 161/90
== END 2018-08-15 12:02 | disposition home or self-care (01) ==
LOC: ER 10:07
DX: L02.413 Cutaneous abscess of right upper limb (principal); R11.0 Nausea; I10 Essential (primary) hypertension; J45.909 Unspecified asthma, uncomplicated; F17.210 Nicotine dependence, cigarettes, uncomplicated; Z86.14 Personal history of Methicillin resistant Staphylococcus aureus infection
CPT/HCPCS: 99283; 10060; S0119; J3490

== ENCOUNTER 2018-08-29 19:11 | Emergency (ER) | payer SELFPAY ==
--- NOTE | 2018-08-29 20:03 | ER Document Report ---
ED General - General Chief Complaint: Overdose Stated Complaint: POSSIBLE OVERDOSE Time Seen by Provider: 08/29/18 19:16 Notes: Patient is a 38-year-old male without chronic medical problems presents after overdosing on heroin. Currently was at his friend's house, was found in the bathroom unresponsive. EMS was called, resuscitated the patient using Narcan. The patient does present without any current complaints other than stating that he feels completely humiliated and ashamed for overdosing while at his friend's house. He does state that he uses heroin 2-3 times weekly more if he has greater income availability. Denies withdrawal symptoms if he does not use. He denies any intent to harm himself tonight stating "I just really wanted to get high before went out for New Year's". Denies any current symptoms. Nothing improves or worsens his symptoms. TRAVEL OUTSIDE OF THE [place] IN LAST 30 DAYS: No - HPI Onset: Just prior to arrival Onset/Duration: Sudden Quality of pain: No pain Severity: None Pain Level: Denies Associated symptoms: None Exacerbated by: Denies Relieved by: Denies Similar symptoms previously: Yes Recently seen / treated by doctor: No - Related Data Allergies/Adverse Reactions: hydrocodone [Hydrocodone] Adverse Reaction (Mild, Verified 08/15/18 10:08) itching Past Medical History - General Information source: Patient - Social History Smoking Status: Current Every Day Smoker Frequency of alcohol use: Occasional Drug Abuse: Cocaine, Heroin, Marijuana Lives with: Alone Family History: Arthritis, CVA, DM, Hyperlipidemia, Hypertension Patient has suicidal ideation: No Patient has homicidal ideation: No - Past Medical History Cardiac Medical History: Reports: Hx Hypertension Pulmonary Medical History: Reports: Hx Asthma Renal/ Medical History: Denies: Hx Peritoneal Dialysis Psychiatric Medical History: Reports: Hx Post Traumatic Stress Disorder Past Surgical History: Reports: Hx Orthopedic Surgery - Abscess removal - Immunizations Hx Diphtheria, Pertussis, Tetanus Vaccination: Yes - 2008 Review of Systems - Review of Systems Notes: Constitutional: Negative for fever. HENT: Negative for sore throat. Eyes: Negative for visual changes. Cardiovascular: Negative for chest pain. Respiratory: Negative for shortness of breath. Gastrointestinal: Negative for abdominal pain, vomiting or diarrhea. Genitourinary: Negative for dysuria. Musculoskeletal: Negative for back pain. Skin: Negative for rash. Neurological: Negative for headaches, weakness or numbness. 10 point ROS negative except as marked above and in HPI. Physical Exam - Vital signs Vitals: Resp Pulse Ox 10 L 95 08/29/18 19:19 08/29/18 19:19 Interpretation: Normal Notes: PHYSICAL EXAMINATION: GENERAL: Well-appearing, well-nourished and in no acute distress. HEAD: Atraumatic, normocephalic. EYES: Pupils equal round and reactive to light, extraocular movements intact, sclera anicteric, conjunctiva are normal. ENT: nares patent, oropharynx clear without exudates. Moist mucous membranes. NECK: Normal range of motion, supple without lymphadenopathy LUNGS: Breath sounds clear to auscultation bilaterally and equal. No wheezes rales or rhonchi. HEART: Regular rate and rhythm without murmurs ABDOMEN: Soft, nontender, normoactive bowel sounds. No guarding, no rebound. No masses appreciated. EXTREMITIES: Normal range of motion, no pitting or edema. No cyanosis. NEUROLOGICAL: No focal neurological deficits. Moves all extremities spontaneously and on command. PSYCH: Anxious, tearful SKIN: Warm, Dry, normal turgor, no rashes or lesions noted. Course - Re-evaluation Re-evalutation: 08/29/18 20:00 Patient presents after an acute opiate overdose, reversed in the field by EMS with naloxone. Patient presents nontoxic in appearance, in no distress, admits to ongoing opiate abuse. I had an extensive conversation with the patient about the dangers opiate abuse, have emphasized that they are never going to be certain what they are self administering particularly given the high rates of fentanyl in our community. Rehab resources have been offered. No indication for labs or imaging. Patient has remained awake, alert, oriented without any evidence of somnolence, hypoventilation or bradycardia to suggest ongoing opiate intoxication that would warrant further observation. At this time will discharge with return precautions and follow-up recommendations. Verbal disc harge instructions given a the bedside and opportunity for questions given. Medication warnings reviewed. Patient is in agreement with this plan and has verbalized understanding of return precautions and the need for primary care follow-up in the next 24-72 hours. - Vital Signs Vital signs: Temp Pulse Resp BP Pulse Ox 20 148/87 H 94 08/29/18 20:54 08/29/18 20:55 08/29/18 20:54 Discharge - Discharge Clinical Impression: Heroin overdose Qualifiers: Encounter type: initial encounter Injury intent: accidental or unintentional Qualified Code(s): T40.1X1A - Poisoning by heroin, accidental (unintentional), initial encounter Condition: Good Disposition: HOME, SELF-CARE Additional Instructions: You were seen today for heroin overdose. Please never use opiates of any kind. Over 200 people every day in the [place] from opiate overdoses. Do not become a statistic. You should urgently seek rehab or a similar resource. You can call 8-519-674-[employer] to find local resources. Return if you have any symptoms that are concerning to you including difficulty breathing, fever, persistent vomiting, or any other symptoms that are concerning to you.
[2018-08-29 21:00] VITALS: BP 148/87
--- NOTE | 2018-08-29 23:34 | EKG REPORT ---
SEVERITY:- NORMAL ECG - SINUS RHYTHM : Confirmed by: Jenna Hihg MD 29-Aug-2018 23:33:58
== END 2018-08-29 20:59 | disposition home or self-care (01) ==
LOC: ER 19:11
DX: T40.1X1A Poisoning by heroin, accidental (unintentional), initial encounter (principal); Y92.002 Bathroom of unspecified non-institutional (private) residence as the place of occurrence of the external cause; F17.200 Nicotine dependence, unspecified, uncomplicated; F12.10 Cannabis abuse, uncomplicated; F14.10 Cocaine abuse, uncomplicated; I10 Essential (primary) hypertension; J45.909 Unspecified asthma, uncomplicated
CPT/HCPCS: 93005; 93010; 99284

== ENCOUNTER 2018-09-04 23:48 | Emergency (ER) | payer SELFPAY ==
[2018-09-04] MEDS: NORMAL SALINE 1000 ML 1,000 ML IV PRN (23:55)
[2018-09-05] MEDS ORDERED: AMPICILLIN SOD/SULBACTAM 3 GM VIAL IV ONE (00:09)
--- NOTE | 2018-09-05 00:20 | ER Document Report ---
ED General - General Stated Complaint: UNRESPONSIVE TRAVEL OUTSIDE OF THE [place] IN LAST 30 DAYS: No - HPI Notes: Patient is a 38-year-old male that presents to the emergency department for chief complaint of opiate overdose. Patient arrived by EMS after being found unresponsive. EMS states when they got on scene he had agonal breathing but was warm to touch. There was an unknown downtime. Patient has a history of opiate overdose in the past. They state after giving him 6 mg intranasal Narcan he had improvement of his respirations but then began with decorticate posturing. At that time they gave him etomidate, succinylcholine, and placed a Roosevelt airway. Past Medical History: Reviewed in chart Past Surgical History: Reviewed in chart Social History: History of cocaine abuse, history of opiate abuse Family History: Reviewed and noncontributory for presenting illness Allergies: Reviewed, see documented allergy list. REVIEW OF SYSTEMS: Unable to obtain because of altered mental status PHYSICAL EXAMINATION: Vital signs reviewed, nursing noted reviewed. GENERAL: Unresponsive HEAD: Atraumatic, normocephalic. EYES: Mid position fixed ENT: nares patent, oropharynx full of vomitus. Moist mucous membranes. NECK:supple LUNGS: Very diminished breath sounds bilaterally, agonal respirations, diffuse rhonchi HEART: Regular rate and rhythm without murmurs +2/4 bilateral radial pulses ABDOMEN: Soft, No masses appreciated. EXTREMITIES: no pitting or edema. NEUROLOGICAL: Sedated and paralyzed, unable to obtain SKIN: Warm, Dry, normal turgor, no rashes or lesions noted on exposed skin - Related Data Allergies/Adverse Reactions: hydrocodone [Hydrocodone] Adverse Reaction (Mild, Verified 08/15/18 10:08) itching Past Medical History - Social History Smoking Status: Unknown if Ever Smoked Family History: Arthritis, CVA, DM, Hyperlipidemia, Hypertension - Past Medical History Cardiac Medical History: Reports: Hx Hypertension Pulmonary Medical History: Reports: Hx Asthma Renal/ Medical History: Denies: Hx Peritoneal Dialysis Psychiatric Medical History: Reports: Hx Post Traumatic Stress Disorder Past Surgical History: Reports: Hx Orthopedic Surgery - Abscess removal - Immunizations Hx Diphtheria, Pertussis, Tetanus Vaccination: Yes - 2008 Course - Re-evaluation Re-evalutation: 09/05/18 00:20 Vitals reviewed. Nursing reviewed. Patient arrived with Roosevelt airway being bagged. He was sedated and paralyzed with etomidate and succinylcholine by EMS just prior to entering the emergency room. Patient was intubated with 7.5 ET tube by myself, see procedure note. After paralytics wore off patient had agonal breathing. His pupils are +2 and minimally reactive. Patient now sedated on propofol. There has been no posturing visualized in the ED and he has moved all extremities spontaneously. 09/05/18 00:20 Chest x-ray shows pulmonary edema and possible aspiration pneumonia. Patient given Unasyn for aspiration. OG and Landin catheter placed. I discussed his care with his mother who is now in the family waiting room. 09/05/18 01:04 Patient's oxygen has been improving, his PEEP was titrated down to 5. [facility] is here to transport patient to [facility]. Case was discussed with Dr. Maurice who accepted patient for transfer. Patient stable for transfer. Chest X-Ray 09/04/18 23:57 IMPRESSION: Mild interstitial prominence may be secondary to edema or atypical pneumonia. 09/05/18 01:[address] brain pending at time of transfer. - EKG Interpretation by Me Additional EKG results interpreted by me: 09/05/18 00:30 Interpreted by myself [id number]: Normal sinus rhythm, rate 84, borderline prolonged QT, QTc 497, normal axis, no STEMI Procedures - Intubation Orotracheal Time of Intubation: 12:05 Airway evaluation: Copious secretions, Obese Mallampati Classification: Class 4 Medications: Etomidate, Succinylcholine Intubation method: Orotracheal Equipment used: Glidescope ETT size: 7.5 ETT secured at: Gums ETT secured at (cm): 25 Breath Sounds after Intubation: Equal End tidal CO2 confirmed: Yes Post Intubation Xray: Yes Intubation Complications: Vomited, Apparent aspiration, O2 saturation decreased - One attempt, patient had copious secretions and vomit and with Roosevelt airway ventilation O2 was 50 upon arrival. Critical Care Note - Critical Care Note Total time excluding time spent on procedures (mins): 45 Comments: Drug overdose with respiratory failure. Interpretation of blood gas, vent settings, frequent re-evaluations, discussion with biomedical electronics technician, discussions with family. Potential for cardiovascular and further respiratory decompensation Discharge - Discharge Clinical Impression: Unresponsive state Opiate overdose Qualifiers: Encounter type: initial encounter Injury intent: undetermined intent Qualified Code(s): T40.604A - Poisoning by unspecified narcotics, undetermined, initial encounter Respiratory failure Qualifiers: Chronicity: acute Respiratory failure complication: hypoxia Qualified Code(s): J96.01 - Acute respiratory failure with hypoxia Aspiration pneumonia Qualifiers: Aspiration pneumonia type: unspecified Laterality: unspecified laterality Lung location: unspecified part of lung Qualified Code(s): J69.0 - Pneumonitis due to inhalation of food and vomit Pulmonary edema Qualifiers: Chronicity: acute Qualified Code(s): J81.0 - Acute pulmonary edema Condition: Stable Disposition: [facility]
--- NOTE | 2018-09-05 00:27 | RADIOLOGY REPORT (SQ) ---
CLINICAL HISTORY: s/p intubation COMPARISON: July 29, 2015. TECHNIQUE: XR CHEST 1 VIEW 09/04/2018 11:57 PM PROGRAM AIDE GROUP WORK FINDINGS: Cardiac silhouette is normal in size. There is mild interstitial prominence within both lungs. There is no pleural effusion. There is no pneumothorax. There are no acute osseous findings. Endotracheal tube tip is in the midtrachea. NG tube tip is in the stomach. IMPRESSION: Mild interstitial prominence may be secondary to edema or atypical pneumonia.
[2018-09-05] MEDS ORDERED: PROPOFOL 1,000 MG/100 ML INFUS..BTL IV ONE (00:38)
[2018-09-05] MEDS: NORMAL SALINE 1000 ML 1,000 ML IV PRN (00:41)
--- NOTE | 2018-09-05 00:55 | EKG REPORT ---
SEVERITY:- BORDERLINE ECG - SINUS RHYTHM BORDERLINE PROLONGED QT INTERVAL : Confirmed by: Jenna High MD 05-Sep-2018 00:54:36
[2018-09-05 01:06] LABS: URINE BARBITURATES SCREEN NEGATIVE; URINE BENZODIAZEPINES SCREEN NEGATIVE; URINE COCAINE SCREEN UNCONFIRMED POSITIVE; URINE MARIJUANA (THC) SCREEN NEGATIVE; URINE METHADONE SCREEN NEGATIVE; URINE PHENCYCLIDINE SCREEN NEGATIVE
--- NOTE | 2018-09-05 01:14 | RADIOLOGY REPORT (SQ) ---
CLINICAL HISTORY: unresponsive COMPARISON: None. TECHNIQUE: CT HEAD WITHOUT IV CONTRAST on 09/04/2018 11:57 PM BALANCE BRIDGE INSPECTOR This exam was performed according to our departmental dose-optimization program, which includes automated exposure control, adjustment of the mA and/or kV according to patient size and/or use of iterative reconstruction technique. FINDINGS: There is no acute hemorrhage, mass effect or midline shift. -white differentiation is preserved. There is no hydrocephalus. There is no significant volume loss for age. The calvarium is intact. Orbits and globes are unremarkable. There is mild thickening of the left maxillary sinus. There is fluid in both sphenoid sinuses. Mastoid air cells are clear. IMPRESSION: No acute intracranial findings.
[2018-09-05 01:16] LABS: APPEARANCE,URINE CLEAR; BILIRUBIN,URINE NEGATIVE (NEGATIVE); COLOR,URINE YELLOW; GLUCOSE, URINE >=500 mg/dL (NEGATIVE); KETONES,URINE NEGATIVE (NEGATIVE); LEUKOCYTE ESTERASE,URINE NEGATIVE (NEGATIVE); NITRITE,URINE NEGATIVE (NEGATIVE); PROTEIN,URINE 100 mg/dL (NEGATIVE); URINE SPECIFIC GRAVITY 1.021; UROBILINOGEN,URINE NEGATIVE mg/dL (<2.0)
[2018-09-05] MEDS ORDERED: LIDOCAINE 2% INJ-PF (100 MG/5 ML) SYRINGE ONE (01:18)
[2018-09-05 03:26] VITALS: BP 120/61
== END 2018-09-05 01:35 | disposition short-term general hospital (02) ==
LOC: ER 23:48
DX: T40.601A Poisoning by unspecified narcotics, accidental (unintentional), initial encounter (principal); J96.01 Acute respiratory failure with hypoxia; Y92.029 Unspecified place in mobile home as the place of occurrence of the external cause; J69.0 Pneumonitis due to inhalation of food and vomit; I10 Essential (primary) hypertension; J45.909 Unspecified asthma, uncomplicated
CPT/HCPCS: 93005; 99291; 96361; 51702; 96365; 81001; 80307; 71045; 70450; 94660; 93010; 36680; 31500; J0295; J2704; J7030 ×2

== ENCOUNTER 2018-12-31 07:37 | Emergency (ER) | payer SELFPAY ==
[2018-12-31] MEDS ORDERED: ACETAMINOPHEN 325 MG TABLET PO ONE (08:18)
--- NOTE | 2018-12-31 09:05 | ER Document Report ---
ED Extremity Problem, Lower - General Chief Complaint: Knee Pain Stated Complaint: RIGHT KNEE PAIN Time Seen by Provider: 12/31/18 08:24 Notes: 38 male no past medical history resents to the emergency department with right knee pain x2 months that got worse in the last week. States he was exercising on elliptical obedience trainer when the initial injury took place and he fell on his knee earlier this week. He said that the pain returned and got progressively worse to the point where he has a difficult time bearing weight on it. He is able to bear weight on it. He is able to move it. He denies fever, chills. Denies shortness of breath or chest pain. Denies swollen leg. No other complaints TRAVEL OUTSIDE OF THE [place] IN LAST 30 DAYS: No - Related Data Allergies/Adverse Reactions: hydrocodone [Hydrocodone] Adverse Reaction (Mild, Verified 12/31/18 07:43) itching Past Medical History - Social History Smoking Status: Current Some Day Smoker Frequency of alcohol use: Occasional Drug Abuse: Marijuana Family History: Arthritis, CVA, DM, Hyperlipidemia, Hypertension Patient has suicidal ideation: No Patient has homicidal ideation: No - Past Medical History Cardiac Medical History: Reports: Hx Hypertension Pulmonary Medical History: Reports: Hx Asthma Renal/ Medical History: Denies: Hx Peritoneal Dialysis Psychiatric Medical History: Reports: Hx Post Traumatic Stress Disorder Past Surgical History: Reports: Hx Orthopedic Surgery - Abscess removal - Immunizations Hx Diphtheria, Pertussis, Tetanus Vaccination: Yes - 2008 Physical Exam - Vital signs Vitals: Temp Pulse Resp BP Pulse Ox 98.2 F 78 16 184/113 H 98 12/31/18 07:52 12/31/18 07:52 12/31/18 07:52 12/31/18 07:52 12/31/18 07:52 - Notes Notes: PHYSICAL EXAMINATION: Reviewed vital signs and charting by RN GENERAL: Alert, interacts well. No acute distress. HEAD: Normocephalic, atraumatic. EYES: Pupils equal and round. Extraocular movements intact. ENT: Oral mucosa moist, tongue midline. NECK: Full range of motion. Supple. Trachea midline. LUNGS: Clear to auscultation bilaterally, no wheezes, rales, or rhonchi. No respiratory distress. HEART: Regular rate and rhythm. No murmur EXTREMITIES: Moves all 4 extremities spontaneously. Mild edema in the area of the pes anserine bursa with tenderness to palpation, normal varus valgus movement, negative Jesus's test, negative patellar grind test, negative anterior drawer's test no cyanosis. Normal distal neurovascular exam BACK: No CVAT NEUROLOGIC: Oriented and appropriate. Normal speech. PSYCH: Normal affect, normal mood. SKIN: Warm, dry, normal turgor. No rashes or lesions noted. Course - Re-evaluation Re-evalutation: 12/31/18 09:08 Overall well-appearing. I have no concern for any ligament damage or septic knee. Patient will be placed in an Mike wrap - Vital Signs Vital signs: Temp Pulse Resp BP Pulse Ox 98.2 F 78 16 184/113 H 98 12/31/18 07:52 12/31/18 07:52 12/31/18 07:52 12/31/18 07:52 12/31/18 07:52 Discharge - Discharge Clinical Impression: Right knee pain Condition: Good Disposition: HOME, SELF-CARE Instructions: Ice & Elevation ([facility]) Additional Instructions: You were seen in the emergency department this morning for right knee pain. Physical exam did not show anything concerning that would require surgery at this time. Possible that you may have inflamed with the bursa that is underneath her kneecap that cushions your knee. In the meantime you can take Motrin 600 mg every 6 hours [id number] with food or milk and/or Tylenol 1000 mg as needed for pain. I provided you with an Mike wrap and you can keep that on while you are awake during the day and take it off while you are sleeping at night. If you are unable to move your knee at all, your foot turns blue, you develop numbness or tingling in your right leg, he develop fever, or if any other concerning symptoms please immediately return to the emergency department. Prescriptions: Ibuprofen [Motrin 600 mg Tablet] 600 mg PO Q8HP PRN #90 tablet PRN Reason: Forms: Return to Work
[2018-12-31 09:54] VITALS: BP 163/106
== END 2018-12-31 10:01 | disposition home or self-care (01) ==
LOC: ER 07:37
DX: M25.561 Pain in right knee (principal); M25.469 Effusion, unspecified knee; F17.200 Nicotine dependence, unspecified, uncomplicated; I10 Essential (primary) hypertension; J45.909 Unspecified asthma, uncomplicated
CPT/HCPCS: 99283

== ENCOUNTER 2019-06-06 03:02 | Emergency (ER) | payer SELFPAY ==
[2019-06-06] MEDS ORDERED: ALBUTEROL SULFATE 0.083% NEB 2.5 MG/3 ML AMPUL NEB ONE (03:15)
[2019-06-06] MEDS ORDERED: METHYLPREDNISOLONE INJ 125 MG/2 ML SDV IV ONE (03:19)
--- NOTE | 2019-06-06 03:20 | ER Document Report ---
ED Respiratory Problem - General Chief Complaint: Shortness Of Breath Stated Complaint: POSS ASTHMA ATTACK Time Seen by Provider: 06/06/19 03:19 Mode of Arrival: Ambulatory Information source: Patient, Parent Notes: HISTORY OF PRESENT ILLNESS: Patient is a 39-year-old male with a past medical history of asthma currently not being treated as the patient is out of medication who presents with 1 day of worsening shortness of breath and wheezing. Patient reports that he ran out of medications 3 years ago and usually has well-controlled asthma, reports having slight congestion and cough the past day but got worse this morning, reports feeling so he could not breathe with wheezing prior to arrival. Location: Chest Onset: One day ago Alleviation: None Provocation: Cough Quality: Wheezing, shortness of breath Radiation: None Severity: Moderate to severe Timing: Constant History of CAD: None Associated symptoms: Denies fevers or chills, reports mild nonproductive cough, denies nausea or vomiting, no swelling of the extremities REVIEW OF SYSTEMS: CONSTITUTIONAL : Denies fever or chills, no sweats. Denies recent illness. EENT: Denies eye, ear, throat, or mouth pain or symptoms. Denies nasal or sinus congestion. CARDIOVASCULAR: Denies chest pain. Denies swelling of the legs. RESPIRATORY: Positive for cough. Positive for wheezing and shortness of breath. GASTROINTESTINAL: Denies abdominal pain. Denies nausea, vomiting, or diarrhea. Denies constipation. GENITOURINARY: Denies difficulty urinating, painful urination, burning, frequency, or blood in urine. MUSCULOSKELETAL: Denies neck or back pain or joint pain or swelling. SKIN: Denies rash or skin lesions. HEMATOLOGIC : Denies easy bruising or bleeding. LYMPHATIC: Denies swollen, enlarged glands. NEUROLOGICAL: Denies altered mental status or loss of consciousness. Denies headache. Denies weakness or paralysis or loss of use of either side. Denies problems with gait or speech. Denies sensory or motor loss. PSYCHIATRIC: Denies anxiety or stress or depression. All other systems reviewed and negative. PHYSICAL EXAMINATION: GENERAL: Tired and weak-appearing, well-nourished and in mild acute distress. HEAD: Atraumatic, normocephalic. No scalp deformity, depression, or crepitance. EYES: Pupils are 3 mm and equal/round/reactive to light, extraocular movements intact, sclera anicteric, conjunctiva are normal. ENT: Nares patent bilaterally, oropharynx. Moist mucous membranes. No tonsil hypertrophy. NECK: Normal range of motion, supple without lymphadenopathy. LUNGS: Breath sounds moderately diminished with coarse moderate expiratory wheezes throughout lung harris. No rhonchi or crackles. HEART: Regular rate and rhythm without murmurs, rubs, or gallops. 2+ peripheral pulses. Normal capillary refill. ABDOMEN: Soft, nontender, nondistended. Normoactive bowel sounds. No guarding, no rebound. No masses appreciated. BACK: Normal contour, no midline tenderness. Rectal exam deferred. GENITAL/PELVIC: Deferred. EXTREMITIES: Normal range of motion, trace edema. No cyanosis. NEUROLOGICAL: No focal neurological deficits. Moves all extremities spontaneously and on command. PSYCH: Normal mood, normal affect. No suicidal thoughts/ideations. No homicidal thoughts/ideations. No hallucinations. SKIN: Warm, dry, normal turgor, no rashes or lesions noted. ASSESSMENT AND PLAN: This patient is a 39-year-old male who presents with cough and difficulty breathing most likely related to acute bronchitis versus asthma exacerbation versus viral syndrome versus pneumonia. 1. Will obtain chest x-ray, give IV Solu-Medrol with DuoNeb treatment, and reassess. 2. Will observe until improved. TRAVEL OUTSIDE OF THE [place] IN LAST 30 DAYS: No - HPI Patient complains to provider of: Asthma Onset: This morning Duration: Worse/persistent Initiating Event: Out of meds Quality of pain: No pain Severity: Moderate Pain Level: Denies Context: Hx asthma Short of Breath: Moderate Sputum amount: None Associated symptoms: Congestion, Cough, Short of breath, Wheezing Similar symptoms previously: No Recently seen / treated by doctor: No - Related Data Allergies/Adverse Reactions: hydrocodone [Hydrocodone] Adverse Reaction (Mild, Verified 12/31/18 07:43) itching Past Medical History - General Information source: Patient, Parent - Social History Smoking Status: Never Smoker Chew tobacco use (# tins/day): No Frequency of alcohol use: None Drug Abuse: None Lives with: Family Family History: Arthritis, CVA, DM, Hyperlipidemia, Hypertension Patient has suicidal ideation: No Patient has homicidal ideation: No - Past Medical History Cardiac Medical History: Reports: Hx Hypertension Pulmonary Medical History: Reports: Hx Asthma EENT Medical History: Reports: None Neurological Medical History: Reports: None Endocrine Medical History: Reports: None Renal/ Medical History: Reports: None. Denies: Hx Peritoneal Dialysis Malignancy Medical History: Reports None GI Medical History: Reports: None Musculoskeletal Medical History: Reports None Skin Medical History: Reports None Psychiatric Medical History: Reports: Hx Post Traumatic Stress Disorder Traumatic Medical History: Reports: None Infectious Medical History: Reports: None Past Surgical History: Reports: Hx Orthopedic Surgery - Abscess removal - Immunizations Hx Diphtheria, Pertussis, Tetanus Vaccination: Yes - 2008 Review of Systems - Review of Systems Constitutional: No symptoms reported EENT: No symptoms reported Cardiovascular: No symptoms reported Respiratory: See HPI, Cough, Short of breath, Wheezing Gastrointestinal: No symptoms reported Genitourinary: No symptoms reported Male Genitourinary: No symptoms reported Musculoskeletal: No symptoms reported Skin: No symptoms reported Hematologic/Lymphatic: No symptoms reported Neurological/Psychological: No symptoms reported -: Yes All other systems reviewed and negative Physical Exam - Vital signs Vitals: Temp Pulse Resp BP Pulse Ox 98.7 F 84 26 H 192/117 H 96 06/06/19 03:07 06/06/19 03:07 06/06/19 03:07 06/06/19 03:07 06/06/19 03:07 Interpretation: Normal Course - Re-evaluation Re-evalutation: 06/06/19 06:16 Chest x-ray shows most likely atelectasis but could represent early developing infection. Labs are unremarkable including negative cardiac enzymes. Patient is dramatically improved. Will discharge the patient home with strict return p recautions and follow-up with primary care. All results were explained to and discussed with the patient, and all questions addressed and answered. The patient voices both understanding and agreeing with the plan. - Vital Signs Vital signs: Temp Pulse Resp BP Pulse Ox 97.9 F 84 20 154/111 H 95 06/06/19 05:01 06/06/19 03:07 06/06/19 05:01 06/06/19 05:01 06/06/19 05:01 - Laboratory Result Diagrams: 06/06/19 03:46 06/06/19 03:46 Laboratory results interpreted by me: 06/06/19 06/06/19 03:46 03:46 Hgb 12.0 L Hct 36.5 L MCV 76 L MCH 25.0 L Eos % (Auto) 10.1 H Absolute Eos (auto) 0.7 H AST 76 H - Diagnostic Test Radiology reviewed: Image reviewed, Reports reviewed Discharge - Discharge Clinical Impression: Asthma exacerbation Qualifiers: Asthma severity: moderate Asthma persistence: unspecified Qualified Code(s): J45.901 - Unspecified asthma with (acute) exacerbation Acute bronchitis Qualifiers: Bronchitis organism: unspecified organism Qualified Code(s): J20.9 - Acute bronchitis, unspecified Condition: Good Disposition: HOME, SELF-CARE Instructions: Bronchitis With Bronchospasm (Wheezing) ([facility]), Family Physicians / Practices Additional Instructions: You have been evaluated in the Emergency Department for difficulty breathing and wheezing. While here, you had blood work that was normal and a chest x-ray that could not completely exclude early infection and it is now safe to be discharged home. Please follow-up with your primary physician as instructed in one week to be rechecked. Return to the Emergency Department if you experience worsening breathing, chest pain, high fevers uncontrolled with medications, or any other concerning symptoms. Prescriptions: Fluticasone/Salmeterol [Advair 250-50 Diskus 14 Dose/Diskus] 1 inh IH Q12H #1 inhaler Methylprednisolone [Medrol Dosepack (4 mg/Tab) 21 Tab/Dosepak] 4 mg PO ASDIR PRN #21 tab.ds.pk PRN Reason: Azithromycin [Zithromax 250 mg Tablet] 250 mg PO ASDIR PRN #6 tablet PRN Reason: Forms: Return to Work Print Language: Icelandic
[2019-06-06 04:45] LABS: ABSOLUTE BASOPHILS # (AUTO) 0.1 10^3/uL (0.0-0.2); ABSOLUTE EOSINOPHILS # (AUTO) 0.7 10^3/uL (0.0-0.6); ABSOLUTE LYMPHOCYTES (AUTO) 2.4 10^3/uL (0.5-4.7); ABSOLUTE MONOCYTES (AUTO) 0.7 10^3/uL (0.1-1.4); BASOPHILS % (AUTO) 1.1 % (0-2); EOSINOPHILS % (AUTO) 10.1 % (0-6); HEMATOCRIT 36.5 % (37.9-51.0); LYMPHOCYTES % (AUTO) 34.8 % (13-45); MEAN CORPUSCULAR HGB CONC 32.8 g/dL (32.0-36.0); MEAN CORPUSCULAR VOLUME 76 fl (80-97); MONOCYTES % (AUTO) 9.8 % (3-13); PLATELET COUNT 271 10^3/uL (150-450); RED BLOOD COUNT 4.79 10^6/uL (4.35-5.55); RED CELL DISTRIBUTION WIDTH 13.4 % (11.5-14.0); SEGMENTED NEUTROPHILS % (AUTO) 44.2 % (42-78); TOTAL CELLS COUNTED % (AUTO) 100 %; WHITE BLOOD COUNT 6.8 10^3/uL (4.0-10.5)
--- NOTE | 2019-06-06 05:20 | RADIOLOGY REPORT (SQ) ---
EXAM DESCRIPTION: XR CHEST 1 VIEW COMPLETED DATE/TME: 06/06/2019 03:19 CLINICAL HISTORY: 39 years, Male, Shortness of breath COMPARISON: None. NUMBER OF VIEWS: 09/05/2016 TECHNIQUE: One LIMITATIONS: None. FINDINGS: There are right basilar interstitial opacities. The left lung is clear. The heart is normal in size. There is no pneumothorax or pleural effusion. There is no acute fracture. IMPRESSION: Right basilar interstitial opacities, likely representing atelectasis or possibly pneumonia. copyright 2010 [employer]- All Rights Reserved
[2019-06-06] MEDS ORDERED: IPRATROPIUM/ALBUTEROL 0.5-2.5 MG/3 ML AMPUL NEB ONE (05:21)
[2019-06-06] MEDS ORDERED: ALBUTEROL SULFATE HFA (90 MCG/PUFF) 8 GM MDI (1 MDI/ER DISP) IH PRN (05:21)
[2019-06-06 05:37] LABS: ALBUMIN 4.3 g/dL (3.5-5.0); ALKALINE PHOSPHATASE 62 U/L (38-126); ANION GAP 12 (5-19); ASPARTATE AMINO TRANSFERASE 76 U/L (17-59); BILIRUBIN,DIRECT 0.2 mg/dL (0.0-0.4); BILIRUBIN,TOTAL 0.8 mg/dL (0.2-1.3); BLOOD UREA NITROGEN 15 mg/dL (7-20); CALCIUM 9.3 mg/dL (8.4-10.2); CARBON DIOXIDE 28 mmol/L (22-30); CHLORIDE 99 mmol/L (98-107); GLUCOSE 109 mg/dL (75-110); POTASSIUM 3.6 mmol/L (3.6-5.0); TOTAL PROTEIN 8.2 g/dL (6.3-8.2)
[2019-06-06 06:35] VITALS: BP 181/108
--- NOTE | 2019-06-07 07:46 | EKG REPORT ---
SEVERITY:- NORMAL ECG - SINUS RHYTHM : Confirmed by: Arik Rudolph MD 07-Jun-2019 07:46:14
== END 2019-06-06 06:35 | disposition home or self-care (01) ==
LOC: ER 03:02
DX: J45.901 Unspecified asthma with (acute) exacerbation (principal); J20.9 Acute bronchitis, unspecified; R06.02 Shortness of breath; R05 Cough; I10 Essential (primary) hypertension
CPT/HCPCS: 36415; 85025; 80053; 84484; 71045; J2930; J3490; J7620; 93005; 93010; 94640; 96374; 99285

== ENCOUNTER 2019-10-01 14:50 | Observation (INO) | payer SELFPAY ==
--- NOTE | 2019-10-01 15:09 | ER Document Report ---
ED Medical Screen (RME) - General Chief Complaint: Low Blood Pressure Stated Complaint: LOW BLOOD PRESSURE Time Seen by Provider: 10/01/19 15:02 Notes: Patient is a 39-year-old male who presents to the emergency department with dizziness and low blood pressure. He was at the grocery store earlier today and he felt dizzy. EMS came in his blood pressure was 87/48. He was advised to go to the emergency department. Patient abuses heroin. His last dose was 2 days ago. Exam: Blood pressure 87/40. Patient is lethargic. I have greeted and performed a rapid initial assessment of this patient. A comprehensive ED assessment and evaluation of the patient, analysis of test results and completion of medical decision making process will be conducted by an additional ED providers. TRAVEL OUTSIDE OF THE [place] IN LAST 30 DAYS: No - Related Data Allergies/Adverse Reactions: hydrocodone [Hydrocodone] Adverse Reaction (Mild, Verified 12/31/18 07:43) itching Past Medical History - Past Medical History Cardiac Medical History: Reports: Hx Hypertension Pulmonary Medical History: Reports: Hx Asthma Renal/ Medical History: Denies: Hx Peritoneal Dialysis Psychiatric Medical History: Reports: Hx Post Traumatic Stress Disorder Past Surgical History: Reports: Hx Orthopedic Surgery - Abscess removal - Immunizations Hx Diphtheria, Pertussis, Tetanus Vaccination: Yes - 2008 Physical Exam - Vital signs Vitals: Pulse Resp BP Pulse Ox 80 16 89/40 L 98 10/01/19 14:57 10/01/19 14:57 10/01/19 14:57 10/01/19 14:57 Course - Vital Signs Vital signs: Temp Pulse Resp BP Pulse Ox 80 16 89/40 L 98 10/01/19 14:57 10/01/19 14:57 10/01/19 14:57 10/01/19 14:57
[2019-10-01 16:18] LABS: ALBUMIN 4.8 g/dL (3.5-5.0); ALKALINE PHOSPHATASE 77 U/L (38-126); ANION GAP 15 (5-19); ASPARTATE AMINO TRANSFERASE 66 U/L (17-59); BILIRUBIN,DIRECT 0.5 mg/dL (0.0-0.4); BILIRUBIN,TOTAL 2.4 mg/dL (0.2-1.3); BLOOD UREA NITROGEN 17 mg/dL (7-20); CARBON DIOXIDE 25 mmol/L (22-30); CHLORIDE 97 mmol/L (98-107); GLUCOSE 141 mg/dL (75-110); POTASSIUM 4.5 mmol/L (3.6-5.0); TOTAL PROTEIN 9.4 g/dL (6.3-8.2)
[2019-10-01 16:19] LABS: HEMOGLOBIN 15.3 g/dL (13.5-17.0); MEAN CORPUSCULAR HEMOGLOBIN 25.1 pg (27.0-33.4); MEAN CORPUSCULAR HGB CONC 33.3 g/dL (32.0-36.0); MEAN CORPUSCULAR VOLUME 75 fl (80-97); PLATELET COUNT 263 10^3/uL (150-450); RED CELL DISTRIBUTION WIDTH 14.7 % (11.5-14.0); WHITE BLOOD COUNT 12.9 10^3/uL (4.0-10.5)
--- NOTE | 2019-10-01 16:24 | ER Document Report ---
ED General - General Chief Complaint: Low Blood Pressure Stated Complaint: LOW BLOOD PRESSURE Time Seen by Provider: 10/01/19 15:02 Mode of Arrival: Ambulatory Information source: Patient TRAVEL OUTSIDE OF THE [place] IN LAST 30 DAYS: No - HPI Onset: Other - over the last 1-2 days Onset/Duration: Gradual Quality of pain: No pain Severity: Moderate Pain Level: Denies Associated symptoms: Weakness, Other - dizziness, weakness, low blood pressure Exacerbated by: Walking, Other - exertion Relieved by: Denies Similar symptoms previously: No Recently seen / treated by doctor: No Notes: 39 year old male with a history of HTN, Asthma, Heroin use (last use 2 days ago) here for dizziness, weakness, and low blood pressure. The patient apparently had EMS to his house earlier but refused transport. The patient was later brought to the ER by his family and he collapsed in the ER lobby. Patient denies recent f [place], chills, sweats, fevers, cough, urinary symptoms, diarrhea. - Related Data Allergies/Adverse Reactions: hydrocodone [Hydrocodone] Adverse Reaction (Mild, Verified 10/01/19 17:10) itching Past Medical History - General Information source: Patient - Social History Smoking Status: Current Every Day Smoker Chew tobacco use (# tins/day): No Frequency of alcohol use: None Drug Abuse: Heroin Family History: Arthritis, CVA, DM, Hyperlipidemia, Hypertension Patient has suicidal ideation: No Patient has homicidal ideation: No - Past Medical History Cardiac Medical History: Reports: Hx Hypertension Pulmonary Medical History: Reports: Hx Asthma Renal/ Medical History: Denies: Hx Peritoneal Dialysis Psychiatric Medical History: Reports: Hx Post Traumatic Stress Disorder Past Surgical History: Reports: Hx Orthopedic Surgery - Abscess removal - Immunizations Hx Diphtheria, Pertussis, Tetanus Vaccination: Yes - 2008 Review of Systems - Review of Systems Constitutional: Weakness EENT: No symptoms reported Cardiovascular: Dizziness, Lightheaded, Other - low blood pressure Respiratory: No symptoms reported Gastrointestinal: No symptoms reported Genitourinary: No symptoms reported Male Genitourinary: No symptoms reported Musculoskeletal: No symptoms reported Skin: No symptoms reported Hematologic/Lymphatic: No symptoms reported Neurological/Psychological: No symptoms reported -: Yes All other systems reviewed and negative Physical Exam - Vital signs Vitals: Pulse Resp BP Pulse Ox 80 16 89/40 L 98 10/01/19 14:57 10/01/19 14:57 10/01/19 14:57 10/01/19 14:57 - Notes Notes: GENERAL: Well-appearing, well-nourished and in no acute distress. HEAD: Atraumatic, normocephalic. EYES: Pupils equal round and reactive to light, extraocular movements intact, sclera anicteric, conjunctiva are normal. ENT: TMs normal, nares patent, oropharynx clear without exudates. Moist mucous membranes. NECK: Normal range of motion, supple without lymphadenopathy or JVD. LUNGS: Breath sounds clear to auscultation bilaterally and equal. No wheezes rales or rhonchi. HEART: Regular rate and rhythm without murmurs, rubs or gallops. ABDOMEN: Soft, nontender, normoactive bowel sounds. No guarding, no rebound. No masses appreciated. EXTREMITIES: Normal range of motion, no pitting or edema. No clubbing or cyanosis. NEUROLOGICAL: Cranial nerves II through XII grossly intact. Normal speech, normal gait. PSYCH: Normal mood, normal affect. SKIN: Warm, Dry, normal turgor, no rashes or lesions noted. Course - Re-evaluation Re-evalutation: 10/01/19 16:37 The patient is here for weakness, dizziness, and hypotension in the setting of use a fair amount of heroin over the last several days (last use 2 days ago). The patient denies any fevers, chills, sweats, infectious symptoms. Labs show a mild TERA and elevated lactic acid at 4.9. Patient treated with fluids. 10/01/19 17:22 The patient is acidotic by VBG which is likely from the lactic acidosis. Patient's blood pressure improved with fluids alone. Patient felt like he was withdrawing some so 1mg of ativan was given in the ER. Patient admitted for further treatment and care. Patient tell me his friend who used IV drugs recently had staph bactermia but the patient says he does not share needles. - Vital Signs Vital signs: Temp Pulse Resp BP Pulse Ox 97.7 F 80 21 H 130/71 H 98 10/01/19 16:29 10/01/19 14:57 10/01/19 16:31 10/01/19 16:31 10/01/19 16:27 - Laboratory Result Diagrams: 10/01/19 15:46 10/01/19 15:46 Laboratory results interpreted by me: 10/01/19 10/01/19 10/01/19 15:46 15:46 15:46 WBC 12.9 H RBC 6.10 H MCV 75 L MCH 25.1 L RDW 14.7 H Seg Neuts % (Manual) 95 H Lymphocytes % (Manual) 4 L Monocytes % (Manual) 0 L Abs Neuts (Manual) 12.3 H Abs Monocytes (Manual) 0.0 L VBG pH VBG pCO2 Chloride 97 L Creatinine 1.34 H Glucose 141 H Lactic Acid 4.9 H Total Bilirubin 2.4 H Direct Bilirubin 0.5 H AST 66 H Total Protein 9.4 H 10/01/19 15:46 WBC RBC MCV MCH RDW Seg Neuts % (Manual) Lymphocytes % (Manual) Monocytes % (Manual) Abs Neuts (Manual) Abs Monocytes (Manual) VBG pH 7.21 L VBG pCO2 67.9 H* Chloride Creatinine Glucose Lactic Acid Total Bilirubin Direct Bilirubin AST Total Protein - Diagnostic Test Radiology reviewed: Image reviewed, Reports reviewed Discharge - Discharge Clinical Impression: Lactic acid acidosis Heroin overdose Qualifiers: Encounter type: initial encounter Injury intent: accidental or unintentional Qualified Code(s): T40.1X1A - Poisoning by heroin, accidental (unintentional), initial encounter Acute kidney failure Qualifiers: Acute renal failure type: unspecified Qualified Code(s): N17.9 - Acute kidney failure, unspecified Condition: Stable Disposition: ADMITTED INPATIENT Admitting Provider: Bianca (Hospitalist) Unit Admitted: Telemetry
[2019-10-01 16:33] LABS: ABSOLUTE LYMPHOCYTES# (MANUAL) 0.5 10^3/uL (0.5-4.7); BASOPHILS % (MANUAL) 0 % (0-2); EOSINOPHILS % (MANUAL) 1 % (0-6); LYMPHOCYTES % (MANUAL) 4 % (13-45); MONOCYTES % (MANUAL) 0 % (3-13); SEGMENTED NEUTROPHILS % (MAN) 95 % (42-78); TOTAL CELLS COUNTED 100
[2019-10-01 16:34] LABS: ANISOCYTOSIS SLIGHT; HYPOCHROMASIA SLIGHT; PLATELET CLUMPS PRESENT; PLATELET COMMENT ADEQUATE
[2019-10-01] MEDS: NORMAL SALINE 1000 ML 1,000 ML IV PRN ×3 (16:40→18:10)
[2019-10-01 16:45] LABS: PROTHROMBIN TIME 14.2 SEC (11.4-15.4)
[2019-10-01] MEDS ORDERED: LORAZEPAM INJ 2 MG/1 ML VIAL IV ONE (16:50)
--- NOTE | 2019-10-01 16:52 | RADIOLOGY REPORT (SQ) ---
EXAM DESCRIPTION: CHEST SINGLE VIEW COMPLETED DATE/TIME: 10/01/2019 4:38 pm REASON FOR STUDY: low blood pressure COMPARISON: 06/06/2019 EXAM PARAMETERS: NUMBER OF VIEWS: One view. TECHNIQUE: Single frontal radiographic view of the chest acquired. RADIATION DOSE: NA LIMITATIONS: None. FINDINGS: LUNGS AND PLEURA: No opacities, masses or pneumothorax. No pleural effusion. MEDIASTINUM AND HILAR STRUCTURES: No masses. Contour normal. HEART AND VASCULAR STRUCTURES: Heart normal in size. Normal vasculature. BONES: No acute findings. HARDWARE: None in the chest. OTHER: No other significant finding. IMPRESSION: NO ACUTE RADIOGRAPHIC FINDING IN THE CHEST. TECHNICAL DOCUMENTATION: JOB ID: [id number] [employer]- All Rights Reserved Reading location - IP/workstation name: [email or web address]
[2019-10-01 17:03] LABS: VENOUS BLOOD BASE EXCESS -2.7 mmol/L; VENOUS BLOOD HCO3 26.8 mmol/L (20-32); VENOUS BLOOD PH 7.21 (7.30-7.42)
[2019-10-01 17:04] LABS: VENOUS BLOOD PCO2 67.9 mmHg (35-63)
[2019-10-01] MEDS ORDERED: NORMAL SALINE 1000 ML 1,000 ML IV ONE (17:23)
[2019-10-01] MEDS ORDERED: ALBUTEROL SULFATE 0.083% NEB 2.5 MG/3 ML AMPUL NEB PRN (17:54)
[2019-10-01] MEDS ORDERED: ACETAMINOPHEN 325 MG TABLET PO PRN (17:54)
[2019-10-01] MEDS ORDERED: ONDANSETRON HCL INJ/PF 4 MG/2 ML SDV IV PRN (17:59)
[2019-10-01] MEDS ORDERED: MAG HYDROX/AL HYDROX/SIMETH SUSP 30 ML UDCUP PO PRN (17:59)
[2019-10-01] MEDS ORDERED: MORPHINE SULFATE 10 MG/5 ML ORAL SOLUTION UDCUP PO PRN (18:01)
--- NOTE | 2019-10-01 18:17 | PDOC H&P ---
History of Present Illness Admission Date/PCP: 10/01/19 17:48 Patient complains of: syncope History of Present Illness: KAT DANIEL is a 39 year old male with a past medical history of hypertension, asthma, tobacco dependence with continuous use, and heroin abuse with continuous use who presented to the emergency department today following 2 episodes of syncope. Per family, the patient has had poor p.o. intake for the last several days. Per patient, he last used heroin approximately 2 days ago. He denies any other recreational drug use. Evaluation in the emergency department revealed Hypotension on arrival (89/40) with mild tachycardia (100), but otherwise stable vital signs, laboratory evaluation revealed slightly elevated WBCs) 12.9), normal coags, lactic acidosis (4.9), mild kidney injury (creatinine 1.34), and elevated LFTs. Chest x-ray was benign. Patient was provided IV fluid resuscitation referred to the hospitalist service for admission management of stay complaints of findings. Past Medical History Cardiac Medical History: Reports: Hypertension Denies: Atrial Fibrillation, Congestive Heart Failure, Myocardial Infarction Pulmonary Medical History: Reports: Asthma EENT Medical History: Reports: None Neurological Medical History: Reports: None Endocrine Medical History: Reports: Obesity Denies: Diabetes Mellitus Type 2, Hypothyroidism Renal/ Medical History: Reports: None Malignancy Medical History: Reports: None GI Medical History: Reports: None Musculoskeltal Medical History: Reports: None Skin Medical History: Reports: None Psychiatric Medical History: Reports: Post Traumatic Stress Disorder, Substance Abuse, Tobacco Dependency Traumatic Medical History: Reports: None Hematology: Reports: None Infectious Medical History: Reports: None Social History Information Source: Patient, Emergency Med Personnel, [facility] Records Lives with: Family Smoking Status: Current Every Day Smoker Cigarettes Packs Per Day: 1 Electronic Cigarette use?: No Frequency of Alcohol Use: None Hx Recreational Drug Use: Yes Drugs: Cocaine, Heroin Hx Prescription Drug Abuse: Yes - Advance Directive Resuscitation Status: Full Code Family History Family History: Arthritis, CVA, DM, Hyperlipidemia, Hypertension Parental Family History Reviewed: Yes Children Family History Reviewed: Yes Sibling(s) Family History Reviewed.: Yes Medication/Allergy Home Medications: Clonidine HCl 0.1 mg PO DAILY #30 tablet 08/26/16 Cyclobenzaprine HCl [Flexeril 10 mg Tablet] 10 mg PO TIDP PRN #15 tab 08/26/16 Oxycodone HCl/Acetaminophen [Percocet 5-325 mg Tablet] 1 tab PO Q4H PRN #6 tablet 09/26/16 Sulfamethoxazole/Trimethoprim [Bactrim Ds Tablet] 2 tab PO BID #20 tablet 09/26/16 Cephalexin [Cephalexin 500 MG Tablet] 500 mg PO Q12 #20 tablet 10/15/16 Oxycodone HCl/Acetaminophen [Percocet 5-325 mg Tablet] 1 tab PO Q6HP PRN #10 tablet 10/15/16 Cephalexin Monohydrate [Keflex 500 mg Capsule] 500 mg PO Q6H 7 Days #28 capsule 08/15/18 Oxycodone HCl/Acetaminophen [Percocet 5-325 mg Tablet] 1 tab PO Q8H PRN #10 tab 08/15/18 Sulfamethoxazole/Trimethoprim [Bactrim Ds Tablet] 1 each PO BID #14 tablet 08/15/18 Ibuprofen [Motrin 600 mg Tablet] 600 mg PO Q8HP PRN #90 tablet 12/31/18 Azithromycin [Zithromax 250 mg Tablet] 250 mg PO ASDIR PRN #6 tablet 06/06/19 Fluticasone/Salmeterol [Advair 250-50 Diskus 14 Dose/Diskus] 1 inh IH Q12H #1 inhaler 06/06/19 Methylprednisolone [Medrol Dosepack (4 mg/Tab) 21 Tab/Dosepak] 4 mg PO ASDIR PRN #21 tab.ds.pk 06/06/19 Allergies/Adverse Reactions: hydrocodone [Hydrocodone] Adverse Reaction (Mild, Verified 10/01/19 17:10) itching Review of Systems Constitutional: PRESENT: weakness. ABSENT: chills, fever(s), headache(s), we ight gain, weight loss Eyes: ABSENT: visual disturbances Ears: ABSENT: hearing changes Cardiovascular: ABSENT: chest pain, dyspnea on exertion, edema, orthropnea, palpitations Respiratory: ABSENT: cough, hemoptysis Gastrointestinal: ABSENT: abdominal pain, constipation, diarrhea, hematemesis, hematochezia, nausea, vomiting Genitourinary: ABSENT: dysuria, hematuria Musculoskeletal: ABSENT: joint swelling Integumentary: ABSENT: rash, wounds Neurological: PRESENT: syncope. ABSENT: abnormal gait, abnormal speech, confusion, dizziness, focal weakness Psychiatric: ABSENT: anxiety, depression, homidical ideation, suicidal ideation Endocrine: ABSENT: cold intolerance, heat intolerance, polydipsia, polyuria Hematologic/Lymphatic: ABSENT: easy bleeding, easy bruising Physical Exam Vital Signs: Temp Pulse Resp BP Pulse Ox 97.7 F 80 21 H 130/71 H 98 10/01/19 16:29 10/01/19 14:57 10/01/19 16:31 10/01/19 16:31 10/01/19 16:27 Intake & Output 09/30/19 10/01/19 10/02/19 06:59 06:59 06:59 Weight 99.79 kg General appearance: PRESENT: no acute distress, obese, well-developed, well- nourished Head exam: PRESENT: atraumatic, normocephalic Eye exam: PRESENT: conjunctiva pink, EOMI, PERRLA. ABSENT: scleral icterus Ear exam: PRESENT: normal external ear exam Mouth exam: PRESENT: moist, tongue midline Teeth exam: PRESENT: poor dentation Respiratory exam: PRESENT: clear to auscultation jed, symmetrical, unlabored. ABSENT: rales, rhonchi, wheezes Cardiovascular exam: PRESENT: RRR, +S1, +S2, tachycardia - HR 90-110. ABSENT: diastolic murmur, rubs, systolic murmur Vascular exam: PRESENT: normal capillary refill GI/Abdominal exam: PRESENT: normal bowel sounds, soft. ABSENT: distended, guarding, mass, organolmegaly, rebound, tenderness Extremities exam: PRESENT: full ROM. ABSENT: calf tenderness, clubbing, pedal edema Neurological exam: PRESENT: alert, awake, oriented to person, oriented to place, oriented to time, oriented to situation, CN II-XII grossly intact, other - lethargic (just received IV ativan). ABSENT: motor sensory deficit Psychiatric exam: PRESENT: appropriate affect, normal mood. ABSENT: homicidal ideation, suicidal ideation Skin exam: PRESENT: dry, intact, warm. ABSENT: cyanosis, rash Results Laboratory Results: 10/01/19 15:46 10/01/19 15:46 10/01/19 10/01/19 10/01/19 15:46 15:46 15:46 WBC 12.9 H RBC 6.10 H Hgb 15.3 Hct 46.0 MCV 75 L MCH 25.1 L MCHC 33.3 RDW 14.7 H Plt Count 263 Seg Neutrophils % Not Reportable VBG pH VBG pCO2 VBG HCO3 VBG Base Excess Sodium 137.0 Potassium 4.5 Chloride 97 L Carbon Dioxide 25 Anion Gap 15 BUN 17 Creatinine 1.34 H Est GFR ( Amer) > 60 Glucose 141 H Lactic Acid 4.9 H Calcium 10.0 Total Bilirubin 2.4 H AST 66 H Alkaline Phosphatase 77 Total Protein 9.4 H Albumin 4.8 10/01/19 15:46 WBC RBC Hgb Hct MCV MCH MCHC RDW Plt Count Seg Neutrophils % VBG pH 7.21 L VBG pCO2 67.9 H* VBG HCO3 26.8 VBG Base Excess -2.7 Sodium Potassium Chloride Carbon Dioxide Anion Gap BUN Creatinine Est GFR ( Amer) Glucose Lactic Acid Calcium Total Bilirubin AST Alkaline Phosphatase Total Protein Albumin 10/01/19 16:45 Creatine Kinase 295 H Impressions: Chest X-Ray 10/01/19 15:06 IMPRESSION: NO ACUTE RADIOGRAPHIC FINDING IN THE CHEST. Assessment and Plan - Diagnosis (1) Lactic acid acidosis Is this a current diagnosis for this admission?: Yes Plan: Likely secondary to heroin overdose resulting in profound hypotension. Blood pressures on arrival 80s over 40s. Lactic acid elevated to 4.9. ABG pending. No evidence of infection at this time although the patient does have a minimally elevated leukocytosis. Patient has received appropriate IV fluid resuscitation. We will trend lactic acid. Continue IV fluids. No indications for IV antibiotics at this time. (2) Acute kidney failure Qualifiers: Acute renal failure type: unspecified Qualified Code(s): N17.9 - Acute kidney failure, unspecified Is this a current diagnosis for this admission?: Yes Plan: Likely secondary to heroin overdose. Creatinine minimally elevated to 1.34. BUN is 17. Patient receiving IV fluid resuscitation followed by IV fluids. We will maintain appropriate blood pressure. Avoid nephrotoxic medications as able. Follow-up chemistry. (3) Syncope Is this a current diagnosis for this admission?: Yes Plan: Likely secondary to heroin overdose. EKG pending. Has received IV fluid resuscitation. We will monitor on continuous cardiac telemetry. Consider echocardiogram. (4) Leukocytosis Qualifiers: Leukocytosis type: unspecified Qualified Code(s): D72.829 - Elevated white blood cell count, unspecified Is this a current diagnosis for this admission?: Yes Plan: Likely reactive to hypotension. Resulting in syncopal event. Urinalysis pending. Chest x-ray is benign. Blood and urine cultures pending. No indications for antibiotic therapy at this time. (5) Substance abuse Is this a current diagnosis for this admission?: Yes Plan: Patient admits to heroin use; states last use was 2 days ago. He denies any other illicit drug use. However, UDS from 09/05/18 was positive for opiates, cocaine, and amphetamines. Discharge planning and patient navigator are consulted. Supportive care. Morphine 5 mg 3 times daily as needed withdrawal symptoms. We will avoid beta-blockers secondary to history of cocaine use. - Time Time Spent with patient: 35 or more minutes Medications reviewed and adjusted accordingly: Yes Anticipated discharge: Home Within: within 24 hours
[2019-10-01 18:56] LABS: ARTERIAL BLOOD BASE EXCESS -1.6 mmol/L; ARTERIAL BLOOD FIO2 ROOM AIR; ARTERIAL BLOOD H2CO3 0.99 mmol/L (1.05-1.35); ARTERIAL BLOOD HCO3 21.8 mmol/L (20-24); ARTERIAL BLOOD O2 SATURATION 95.2 % (94-98); ARTERIAL BLOOD PCO2 32.8 mmHg (35-45); ARTERIAL BLOOD PH 7.44 (7.35-7.45); ARTERIAL BLOOD PO2 72.3 mmHg (80-100); ARTERIAL BLOOD TOTAL CO2 22.8 mmol/L (23-27)
[2019-10-01] MEDS ORDERED: NICOTINE 14 MG/24 HR PATCH.TD24 TD ONE (19:30)
[2019-10-01] MEDS ORDERED: DOCUSATE SODIUM 100 MG CAPSULE PO ONE (20:00)
[2019-10-01] MEDS ORDERED: CLONIDINE HCL 0.1 MG TABLET PO SCH (22:00)
[2019-10-01] MEDS: FAMOTIDINE 20 MG TABLET PO SCH (22:10)
[2019-10-01] MEDS: HEPARIN SOD (PORCINE) 5,000 UNIT/ML 1 ML VIAL SUBCUT SCH (22:11)
[2019-10-01 22:40] LABS: APPEARANCE,URINE CLEAR; BILIRUBIN,URINE NEGATIVE (NEGATIVE); COLOR,URINE YELLOW; GLUCOSE, URINE NEGATIVE (NEGATIVE); KETONES,URINE NEGATIVE (NEGATIVE); PROTEIN,URINE NEGATIVE (NEGATIVE); URINE SPECIFIC GRAVITY 1.009
[2019-10-01 22:53] LABS: URINE BARBITURATES SCREEN NEGATIVE; URINE BENZODIAZEPINES SCREEN NEGATIVE; URINE COCAINE SCREEN NEGATIVE; URINE MARIJUANA (THC) SCREEN NEGATIVE; URINE METHADONE SCREEN NEGATIVE; URINE PHENCYCLIDINE SCREEN NEGATIVE
[2019-10-01] MEDS ORDERED: INFLUENZA QUAD (6MOS+) 2019-20 VAC 0.5 ML SYR IM ONE (23:32)
--- NOTE | 2019-10-02 00:15 | EKG REPORT ---
SEVERITY:- NORMAL ECG - SINUS RHYTHM : Confirmed by: David Jordan 02-Oct-2019 00:14:10
[2019-10-02] MEDS: NORMAL SALINE 1000 ML 1,000 ML IV PRN (00:51)
[2019-10-02] MEDS: HEPARIN SOD (PORCINE) 5,000 UNIT/ML 1 ML VIAL SUBCUT SCH (06:16)
[2019-10-02 07:57] LABS: ANION GAP 9 (5-19); BLOOD UREA NITROGEN 14 mg/dL (7-20); CALCIUM 9.4 mg/dL (8.4-10.2); CARBON DIOXIDE 21 mmol/L (22-30); CHLORIDE 106 mmol/L (98-107); GLUCOSE 82 mg/dL (75-110); POTASSIUM 4.4 mmol/L (3.6-5.0)
[2019-10-02 08:03] LABS: HEMATOCRIT 37.1 % (37.9-51.0); HEMOGLOBIN 12.2 g/dL (13.5-17.0); MEAN CORPUSCULAR HEMOGLOBIN 24.9 pg (27.0-33.4); MEAN CORPUSCULAR HGB CONC 32.9 g/dL (32.0-36.0); MEAN CORPUSCULAR VOLUME 76 fl (80-97); PLATELET COUNT 228 10^3/uL (150-450); RED BLOOD COUNT 4.91 10^6/uL (4.35-5.55); RED CELL DISTRIBUTION WIDTH 14.7 % (11.5-14.0); WHITE BLOOD COUNT 10.9 10^3/uL (4.0-10.5)
[2019-10-02] MEDS ORDERED: ONDANSETRON HCL INJ/PF 4 MG/2 ML SDV IV PRN (09:00)
[2019-10-02] MEDS ORDERED: LOSARTAN POTASSIUM 50 MG TABLET PO SCH (10:00)
[2019-10-02] MEDS ORDERED: DOCUSATE SODIUM 100 MG CAPSULE PO SCH (10:00)
[2019-10-02] MEDS ORDERED: FLUTICASONE/VILANTEROL 200-25 MCG/DOSE IH SCH (10:00)
[2019-10-02] MEDS ORDERED: NICOTINE 14 MG/24 HR PATCH.TD24 TD SCH (10:00)
[2019-10-02] MEDS: FAMOTIDINE 20 MG TABLET PO SCH (10:11)
[2019-10-02 11:32] VITALS: BP 148/83
--- NOTE | 2019-10-02 13:10 | PDOC DISCHARGE SUMMARY ---
Impression - Admit/DC Date/PCP Admission Date/Primary Care Provider: 10/01/19 17:48 Discharge Date: 10/02/19 - Discharge Diagnosis (1) Lactic acid acidosis Is this a current diagnosis for this admission?: Yes (2) Acute kidney failure Is this a current diagnosis for this admission?: Yes (3) Syncope Is this a current diagnosis for this admission?: Yes (4) Leukocytosis Is this a current diagnosis for this admission?: Yes (5) Substance abuse Is this a current diagnosis for this admission?: Yes - Additional Information Resuscitation Status: Full Code Discharge Diet: Cardiac Discharge Activity: Activity As Tolerated, Balance Activity w/Rest Referrals: [facility],ELOPED [Other] [facility]NO [facility]AL MD] - Prescriptions: Fluticasone/Vilanterol [Breo 200-25 Mcg Ellipta 14 Dose/Dpi] 1 inh IH DAILY #1 inhaler Losartan Potassium [Cozaar 50 mg Tablet] 50 mg PO DAILY #30 tablet Nicotine [Nicoderm 14 mg/24 Hr Transdermal Patch] 1 each TD DAILY #30 patch.td24 Home Medications: Acetaminophen [Tylenol 325 mg Tablet] 650 mg PO Q4HP PRN tablet 10/02/19 Fluticasone/Vilanterol [Breo 200-25 Mcg Ellipta 14 Dose/Dpi] 1 inh IH DAILY #1 inhaler 10/02/19 Losartan Potassium [Cozaar 50 mg Tablet] 50 mg PO DAILY #30 tablet 10/02/19 Nicotine [Nicoderm 14 mg/24 Hr Transdermal Patch] 1 each TD DAILY #30 patch.td24 10/02/19 No Home Medications 10/02/19 History of Present Illiness History of Present Illness: KAT DANIEL is a 39 year old male with a past medical history of hypertension, asthma, tobacco dependence with continuous use, and heroin abuse with continuous use who presented to the emergency department today following 2 episodes of syncope. Per family, the patient has had poor p.o. intake for the last several days. Per patient, he last used heroin approximately 2 days ago. He denies any other recreational drug use. Evaluation in the emergency department revealed Hypotension on arrival (89/40) with mild tachycardia (100), but otherwise stable vital signs, laboratory evaluation revealed slightly elevated WBCs) 12.9), normal coags, lactic acidosis (4.9), mild kidney injury (creatinine 1.34), and elevated LFTs. Chest x-ray was benign. Patient was provided IV fluid resuscitation referred to the hospitalist service for admission management of stay complaints of findings. Hospital Course Hospital Course: Patient was admitted to the medical floor on continuous cardiac telemetry. He was provided normal saline bolus by the ED provider followed by generous maintenance IV fluids. Follow-up chemistry revealed resolution of his lactic acidosis and acute kidney injury. He did receive 1 dose of oral morphine 5 mg for management of withdrawal symptoms. He was also provided losartan 50 mg for hypertension (148/83). Prescriptions for Breo, losartan, and NicoDerm patches have been transmitted to the patient's preferred pharmacy. The patient is stable for discharge and planned for discharge today, however, he eloped with IV in place prior to receiving discharge order, teaching, and opportunity to have the IV removed. Nursing has followed proper protocol for follow-up. Physical Exam Vital Signs: Temp Pulse Resp BP Pulse Ox 98.2 F 83 18 148/83 H 100 10/02/19 11:04 10/02/19 11:04 10/02/19 11:04 10/02/19 11:04 10/02/19 11:04 Intake & Output 10/01/19 10/02/19 10/03/19 06:59 06:59 06:59 Intake Total 4000 Output Total 2000 Balance 2000 Weight 104.3 kg General appearance: PRESENT: no acute distress, disheveled, obese, well- developed, well-nourished Head exam: PRESENT: atraumatic, normocephalic Eye exam: PRESENT: conjunctiva pink, EOMI, PERRLA. ABSENT: scleral icterus Mouth exam: PRESENT: moist, tongue midline Respiratory exam: PRESENT: clear to auscultation jed, symmetrical, unlabored. ABSENT: rales, rhonchi, wheezes Cardiovascular exam: PRESENT: RRR, +S1, +S2. ABSENT: diastolic murmur, rubs, systolic murmur Vascular exam: PRESENT: normal capillary refill GI/Abdominal exam: PRESENT: normal bowel sounds, soft. ABSENT: distended, guarding, mass, organolmegaly, rebound, tenderness Rectal exam: PRESENT: deferred Extremities exam: PRESENT: full ROM. ABSENT: calf tenderness, clubbing, pedal edema Musculoskeletal exam: PRESENT: ambulatory Neurological exam: PRESENT: alert, awake, oriented to person, oriented to place, oriented to time, oriented to situation, CN II-XII grossly intact. ABSENT: motor sensory deficit Psychiatric exam: PRESENT: appropriate affect, normal mood. ABSENT: homicidal ideation, suicidal ideation Skin exam: PRESENT: dry, intact, warm. ABSENT: cyanosis, rash Results Laboratory Results: WBC 10.9 10^3/uL (4.0-10.5) H 10/02/19 07:20 RBC 4.91 10^6/uL (4.35-5.55) 10/02/19 07:20 Hgb 12.2 g/dL (13.5-17.0) L D 10/02/19 07:20 Hct 37.1 % (37.9-51.0) L 10/02/19 07:20 MCV 76 fl (80-97) L 10/02/19 07:20 MCH 24.9 pg (27.0-33.4) L 10/02/19 07:20 MCHC 32.9 g/dL (32.0-36.0) 10/02/19 07:20 RDW 14.7 % (11.5-14.0) H 10/02/19 07:20 Plt Count 228 10^3/uL (150-450) 10/02/19 07:20 Lymph % (Auto) Not Reportable 10/01/19 15:46 [place] % (Auto) Not Reportable 10/01/19 15:46 Eos % (Auto) Not Reportable 10/01/19 15:46 Baso % (Auto) Not Reportable 10/01/19 15:46 Absolute Neuts (auto) Not Reportable 10/01/19 15:46 Absolute Lymphs (auto) Not Reportable 10/01/19 15:46 Absolute Monos (auto) Not Reportable 10/01/19 15:46 Absolute Eos (auto) Not Reportable 10/01/19 15:46 Absolute Basos (auto) Not Reportable 10/01/19 15:46 Total Counted 100 10/01/19 15:46 Seg Neutrophils % Not Reportable 10/01/19 15:46 Seg Neuts % (Manual) 95 % (42-78) H 10/01/19 15:46 Lymphocytes % (Manual) 4 % (13-45) L 10/01/19 15:46 Monocytes % (Manual) 0 % (3-13) L 10/01/19 15:46 Eosinophils % (Manual) 1 % (0-6) 10/01/19 15:46 Basophils % (Manual) 0 % (0-2) 10/01/19 15:46 Abs Neuts (Manual) 12.3 10^3/uL (1.7-8.2) H 10/01/19 15:46 Abs Lymphs (Manual) 0.5 10^3/uL (0.5-4.7) 10/01/19 15:46 Abs Monocytes (Manual) 0.0 10^3/uL (0.1-1.4) L 10/01/19 15:46 Absolute Eos (Manual) 0.1 10^3/uL (0.0-0.6) 10/01/19 15:46 Abs Basophils (Manual) 0.0 10^3/uL (0.0-0.2) 10/01/19 15:46 Clumped Platelets PRESENT 10/01/19 15:46 Platelet Comment ADEQUATE 10/01/19 15:46 Hypochromasia SLIGHT 10/01/19 15:46 Anisocytosis SLIGHT 10/01/19 15:46 Microcytosis 1+ 10/01/19 15:46 PT 14.2 SEC (11.4-15.4) 10/01/19 16:24 INR 1.10 10/01/19 16:24 Carbonic Acid 0.99 mmol/L (1.05-1.35) L 10/01/19 18:45 HCO3/H2CO3 Ratio 22:1 10/01/19 18:45 ABG pH 7.44 (7.35-7.45) 10/01/19 18:45 ABG pCO2 32.8 mmHg (35-45) L 10/01/19 18:45 ABG pO2 72.3 mmHg (80-100) L 10/01/19 18:45 ABG HCO3 21.8 mmol/L (20-24) 10/01/19 18:45 ABG Total CO2 22.8 mmol/L (23-27) L 10/01/19 18:45 ABG O2 Saturation 95.2 % (94-98) 10/01/19 18:45 ABG Base Excess -1.6 mmol/L 10/01/19 18:45 VBG pH 7.21 (7.30-7.42) L 10/01/19 15:46 VBG pCO2 67.9 mmHg (35-63) H* 10/01/19 15:46 VBG HCO3 26.8 mmol/L (20-32) 10/01/19 15:46 VBG Base Excess -2.7 mmol/L 10/01/19 15:46 FiO2 ROOM AIR 10/01/19 18:45 Sodium 136.3 mmol/L (137-145) L 10/02/19 07:20 Potassium 4.4 mmol/L (3.6-5.0) 10/02/19 07:20 Chloride 106 mmol/L (98-107) 10/02/19 07:20 Carbon Dioxide 21 mmol/L (22-30) L 10/02/19 07:20 Anion Gap 9 (5-19) 10/02/19 07:20 BUN 14 mg/dL (7-20) 10/02/19 07:20 Creatinine 1.02 mg/dL (0.52-1.25) 10/02/19 07:20 Est GFR ( Amer) > 60 (>60) 10/02/19 07:20 Est GFR (MDRD) Non-Af > 60 (>60) 10/02/19 07:20 Glucose 82 mg/dL (75-110) 10/02/19 07:20 Hemoglobin A1c % 5.7 % (4.7-6.0) 10/01/19 16:45 Lactic Acid 0.9 mmol/L (0.7-2.1) 10/02/19 00:44 Calcium 9.4 mg/dL (8.4-10.2) 10/02/19 07:20 Total Bilirubin 2.4 mg/dL (0.2-1.3) H 10/01/19 15:46 Direct Bilirubin 0.5 mg/dL (0.0-0.4) H 10/01/19 15:46 Neonat Total Bilirubin Not Reportable 10/01/19 15:46 Neonat Direct Bilirubin Not Reportable 10/01/19 15:46 Neonat Indirect Bili Not Reportable 10/01/19 15:46 AST 66 U/L (17-59) H 10/01/19 15:46 ALT 56 U/L (<50) 10/01/19 15:46 Alkaline Phosphatase 77 U/L (38-126) 10/01/19 15:46 Creatine Kinase 295 U/L (55-170) H 10/01/19 16:45 Total Protein 9.4 g/dL (6.3-8.2) H 10/01/19 15:46 Albumin 4.8 g/dL (3.5-5.0) 10/01/19 15:46 TSH 0.11 uIU/mL (0.47-4.68) L 10/02/19 07:20 Urine Color YELLOW 10/01/19 22:15 Urine Appearance CLEAR 10/01/19 22:15 Urine pH 6.0 (5.0-9.0) 10/01/19 22:15 Ur Specific [place] 1.009 10/01/19 22:15 Urine Protein NEGATIVE mg/dL (NEGATIVE) 10/01/19 22:15 Urine Glucose (UA) NEGATIVE mg/dL (NEGATIVE) 10/01/19 22:15 Urine Ketones NEGATIVE mg/dL (NEGATIVE) 10/01/19 22:15 Urine Blood NEGATIVE (NEGATIVE) 10/01/19 22:15 Urine Nitrite (Reflex) NEGATIVE (NEGATIVE) 10/01/19 22:15 Urine Bilirubin NEGATIVE (NEGATIVE) 10/01/19 22:15 Urine Urobilinogen 4.0 mg/dL (<2.0) H 10/01/19 22:15 Leukocyte Esterase Rfl NEGATIVE (NEGATIVE) 10/01/19 22:15 Urine RBC (Auto) 0 /HPF 10/01/19 22:15 Urine WBC (Reflex) 1 /HPF 10/01/19 22:15 Urine Mucus (Auto) RARE /LPF 10/01/19 22:15 Urine Ascorbic Acid NEGATIVE (NEGATIVE) 10/01/19 22:15 Urine Opiates Screen UNCONFIRMED POSITIVE 10/01/19 22:15 Urine Methadone Screen NEGATIVE 10/01/19 22:15 Ur Barbiturates Screen NEGATIVE 10/01/19 22:15 Ur Phencyclidine Scrn NEGATIVE 10/01/19 22:15 Ur Amphetamines Screen 10/01/19 22:15 U Benzodiazepines Scrn NEGATIVE 10/01/19 22:15 Urine Cocaine Screen NEGATIVE 10/01/19 22:15 U Marijuana (THC) Screen NEGATIVE 10/01/19 22:15 Serum Alcohol < 10 mg/dL (NONE DETECTED) 10/01/19 16:45 Impressions: Chest X-Ray 10/01/19 15:06 IMPRESSION: NO ACUTE RADIOGRAPHIC FINDING IN THE CHEST. Plan Plan of Treatment: Patient was intended to be discharged today with recommendations to follow-up with his primary care provider within 1 week. Unfortunately, the patient eloped just shortly after the discharge was ordered but prior to nursing be able to provide discharge teaching and remove his peripheral IV. Received notification from the patient's primary nurse that she had appropriately reported this to the nursing bottoming room supervisor and [facility] for follow-up. Time Spent: Greater than 30 Minutes Stroke Is this a Stroke Patient?: No Acute Heart Failure - Is this a Heart Failure Patient?: No
== END 2019-10-02 12:15 | disposition left against medical advice (07) ==
LOC: ER 14:50 → INTOOBSV 17:48 → EH 17:48 → 4N 20:33
PROVIDERS: ADMIT Internal Medicine; ATTEND Internal Medicine
DX: E87.2 Acidosis (principal); N17.9 Acute kidney failure, unspecified; R55 Syncope and collapse; D72.829 Elevated white blood cell count, unspecified; I10 Essential (primary) hypertension; F11.10 Opioid abuse, uncomplicated; J45.909 Unspecified asthma, uncomplicated; R79.89 Other specified abnormal findings of blood chemistry; E66.9 Obesity, unspecified; F17.210 Nicotine dependence, cigarettes, uncomplicated; T40.1X1A Poisoning by heroin, accidental (unintentional), initial encounter
CPT/HCPCS: 99285; 96361; 96374; 36415 ×2; 87040; 80307 ×2; 82803 ×2; 82550; 83605 ×2; 84443; 85025; 85027; 85610; 87077; 80048; 80053; 81001; 83036; 87150 ×26; 71045; 93005; 93010; G0378 ×3; J1644; J2060; J7030 ×2; J3490

== ENCOUNTER 2020-04-20 21:11 | Emergency (ER) | payer SELFPAY ==
--- NOTE | 2020-04-20 22:00 | ER Document Report ---
ED Medical Screen (RME) - General Chief Complaint: Abdominal Pain Stated Complaint: ABDOMINAL PAIN, BLODDY STOOL, NAUSEA, VOMITING Time Seen by Provider: 04/20/20 21:52 Mode of Arrival: Ambulatory Information source: Patient Notes: HPI; 39-year-old male presents to the emergency room complaining of constipation for the past 2 weeks. States is been only having small bowel movements. States that started after getting switched from Suboxone to methadone at the methadone clinic. States he is having worsening abdominal pain tonight. States after a hard small bowel movement today he noticed some blood in the toilet bowl denies any blood when he wiped. Denies any blood in the stool. No medications for symptoms. No bad food he can think of. Denies nausea, vomiting, no recent travel. No COVID-19 exposure. PE: Alert and oriented x3. Mild distress noted. Lungs: Clear to auscultation without rales, rhonchi, wheezes. Heart: Tachycardic without murmurs, rubs, gallops. Abdomen distended hypoactive bowel sounds. I have greeted and performed a rapid initial assessment of this patient. A comprehensive ED assessment and evaluation of the patient, analysis of test results and completion of the medical decision making process will be conducted by additional ED providers. I have specifically instructed the patient or family members with the patient to immediately return to any nursing staff should anything change in the patient's condition or with their chief complaint. TRAVEL OUTSIDE OF THE [place] IN LAST 30 DAYS: No - Related Data Allergies/Adverse Reactions: hydrocodone [Hydrocodone] Adverse Reaction (Mild, Verified 10/01/19 17:10) itching Past Medical History - Past Medical History Cardiac Medical History: Reports: Hx Hypertension Denies: Hx Atrial Fibrillation, Hx Congestive Heart Failure, Hx Heart Attack Pulmonary Medical History: Reports: Hx Asthma Endocrine Medical History: Denies: Hx Diabetes Mellitus Type 2, Hx Hypothyroidism Renal/ Medical History: Denies: Hx Peritoneal Dialysis Psychiatric Medical History: Reports: Hx Post Traumatic Stress Disorder Past Surgical History: Reports: Hx Orthopedic Surgery - Abscess removal - Immunizations Hx Diphtheria, Pertussis, Tetanus Vaccination: Yes - 2008 Physical Exam - Vital signs Vitals: Temp Pulse Resp BP Pulse Ox 99.3 F 105 H 18 173/98 H 96 04/20/20 21:30 04/20/20 21:30 04/20/20 21:30 04/20/20 21:30 04/20/20 21:30 Course - Vital Signs Vital signs: Temp Pulse Resp BP Pulse Ox 99.3 F 105 H 18 173/98 H 96 04/20/20 21:30 04/20/20 21:30 04/20/20 21:30 04/20/20 21:30 04/20/20 21:30
--- NOTE | 2020-04-20 23:02 | RADIOLOGY REPORT (SQ) ---
EXAM DESCRIPTION: XR ABDOMEN 1 VIEW (KUB) COMPLETED DATE/TME: 04/20/2020 21:57 CLINICAL HISTORY: 39 years Male ,constipation COMPARISON: None. TECHNIQUE: Single view of the abdomen was provided.. FINDINGS:Upper abdomen incompletely included on the image. No dilated loops of bowel to suggest obstruction. Large volume of fecal material in the colon particularly in the right colon consistent with constipation. Phleboliths in the pelvis. IMPRESSION: Large volume of fecal material in the colon consistent with constipation
[2020-04-21 00:06] LABS: ABSOLUTE LYMPHOCYTES (AUTO) 1.8 10^3/uL (0.5-4.7); ABSOLUTE MONOCYTES (AUTO) 0.6 10^3/uL (0.1-1.4); ABSOLUTE NEUT (AUTO) 6.5 10^3/uL (1.7-8.2); BASOPHILS % (AUTO) 0.4 % (0-2); EOSINOPHILS % (AUTO) 0.5 % (0-6); HEMATOCRIT 44.2 % (37.9-51.0); HEMOGLOBIN 14.3 g/dL (13.5-17.0); LYMPHOCYTES % (AUTO) 19.6 % (13-45); MEAN CORPUSCULAR HEMOGLOBIN 24.4 pg (27.0-33.4); MEAN CORPUSCULAR HGB CONC 32.4 g/dL (32.0-36.0); MEAN CORPUSCULAR VOLUME 75 fl (80-97); MONOCYTES % (AUTO) 6.2 % (3-13); PLATELET COUNT 231 10^3/uL (150-450); RED BLOOD COUNT 5.87 10^6/uL (4.35-5.55); RED CELL DISTRIBUTION WIDTH 16.2 % (11.5-14.0); SEGMENTED NEUTROPHILS % (AUTO) 73.3 % (42-78); TOTAL CELLS COUNTED % (AUTO) 100 %; WHITE BLOOD COUNT 8.9 10^3/uL (4.0-10.5)
[2020-04-21 00:13] LABS: ALBUMIN 5.4 g/dL (3.5-5.0); ALKALINE PHOSPHATASE 61 U/L (38-126); ANION GAP 12 (5-19); ASPARTATE AMINO TRANSFERASE 94 U/L (17-59); BILIRUBIN,DIRECT 0.1 mg/dL (0.0-0.4); BILIRUBIN,TOTAL 1.3 mg/dL (0.2-1.3); BLOOD UREA NITROGEN 14 mg/dL (7-20); CALCIUM 9.8 mg/dL (8.4-10.2); CARBON DIOXIDE 26 mmol/L (22-30); CHLORIDE 103 mmol/L (98-107); GLUCOSE 107 mg/dL (75-110); POTASSIUM 4.2 mmol/L (3.6-5.0); TOTAL PROTEIN 9.4 g/dL (6.3-8.2)
[2020-04-21] MEDS ORDERED: MAGNESIUM CITRATE 296 ML BOTTLE PO ONE (02:35)
[2020-04-21 03:05] VITALS: BP 162/97
--- NOTE | 2020-04-21 05:39 | ER Document Report ---
Entered by PAUL CRUZ SCRIBE 04/21/20 0149 Acting as scribe for:DION CARR IV, MD ED GI/ - General Chief Complaint: Abdominal Pain Stated Complaint: ABDOMINAL PAIN, BLODDY STOOL, NAUSEA, VOMITING Time Seen by Provider: 04/20/20 21:52 Primary Care Provider: IVETTE RASCON MD [HONORARY] - Follow up as needed Mode of Arrival: Ambulatory Information source: Patient Notes: This 39 year old male patient presents to the ED today with complaints of abdominal pain related to constipation that started last night. Patient states that he has been constipated for the past x2.5 weeks, ever since he was switched from Subutex to Methadone. He reports that he tried laxatives without relief and also tried anti-diarrhea medicine which made the pain worse. He also mentions that the constipation is exacerbating his asthma. Denies any other symptoms. TRAVEL OUTSIDE OF THE [place] IN LAST 30 DAYS: No - Related Data Allergies/Adverse Reactions: hydrocodone [Hydrocodone] Adverse Reaction (Mild, Verified 10/01/19 17:10) itching Past Medical History - General Information source: Patient - Social History Smoking Status: Current Every Day Smoker Frequency of alcohol use: None Drug Abuse: Marijuana, Prescription drugs Family History: Reviewed & Not Pertinent, Arthritis, CVA, DM, Hyperlipidemia, Hypertension Patient has suicidal ideation: No Patient has homicidal ideation: No - Past Medical History Cardiac Medical History: Reports: Hx Hypertension Pulmonary Medical History: Reports: Hx Asthma Psychiatric Medical History: Reports: Hx Post Traumatic Stress Disorder Past Surgical History: Reports: Hx Orthopedic Surgery - Abscess removal - Immunizations Hx Diphtheria, Pertussis, Tetanus Vaccination: Yes - 2008 Review of Systems - Review of Systems Constitutional: No symptoms reported EENT: No symptoms reported Cardiovascular: See HPI, Dyspnea Respiratory: No symptoms reported Gastrointestinal: See HPI, Abdominal pain, Constipation Genitourinary: No symptoms reported Male Genitourinary: No symptoms reported Musculoskeletal: No symptoms reported Skin: No symptoms reported Hematologic/Lymphatic: No symptoms reported Neurological/Psychological: No symptoms reported -: Yes All other systems reviewed and negative Physical Exam - Vital signs Vitals: Temp Pulse Resp BP Pulse Ox 99.3 F 105 H 18 173/98 H 96 04/20/20 21:30 04/20/20 21:30 04/20/20 21:30 04/20/20 21:30 04/20/20 21:30 - General General appearance: Alert In distress: None - HEENT Head: Normocephalic, Atraumatic Eyes: Normal Pupils: PERRL - Respiratory Respiratory status: No respiratory distress Chest status: Nontender Breath sounds: Normal Chest palpation: Normal - Cardiovascular Rhythm: Regular Heart sounds: Normal auscultation Murmur: No Friction rub: No Gallop: None auscultated - Abdominal Inspection: Normal Distension: Distended Bowel sounds: Hypoactive Tenderness: Nontender Organomegaly: No organomegaly - Back Back: Normal, Nontender - Extremities General upper extremity: Normal inspection General lower extremity: Normal inspection - Neurological Neuro grossly intact: Yes Orientation: AAOx4 [place] Coma Scale Eye Opening: Spontaneous [place] Coma Scale Verbal: Oriented [place] Coma Scale Motor: Obeys Commands [place] Coma Scale Total: 15 - Psychological Associated symptoms: Normal affect, Normal mood - Skin Skin Temperature: Warm Skin Moisture: Dry Skin Color: Normal Course - Re-evaluation Re-evalutation: 04/21/20 02:33 Results of ED MSE discussed with patient and patient's mother. All questions were answered prior to discharge. Emergency signs and symptoms, reasons to return to the emergency department discussed with patient and patient's mother. - Vital Signs Vital signs: Temp Pulse Resp BP Pulse Ox 99.3 F 105 H 18 173/98 H 96 04/20/20 21:30 04/20/20 21:30 04/20/20 21:30 04/20/20 21:30 04/20/20 21:30 - Laboratory Result Diagrams: 04/20/20 23:45 04/20/20 23:45 Laboratory results interpreted by me: 04/20/20 04/20/20 23:45 23:45 RBC 5.87 H MCV 75 L MCH 24.4 L RDW 16.2 H AST 94 H ALT 78 H Total Protein 9.4 H Albumin 5.4 H - Diagnostic Test Radiology reviewed: Reports reviewed Discharge - Discharge Clinical Impression: Constipation Qualifiers: Constipation type: drug induced constipation Qualified Code(s): K59.03 - Drug induced constipation Condition: Stable Disposition: HOME, SELF-CARE Additional Instructions: Return to the Emergency Department without delay if any worse. HOME CARE INSTRUCTIONS & INFORMATION: Thank you for choosing us for your medical needs. We hope you're satisfied with the care you received. After you leave, you must properly care for your problem and, at the same time, observe its progress. Any condition can change. Some illnesses can change rapidly over hours or days. If your condition worsens, return to the Emergency Department or see your physician promptly. ABOUT YOUR X-RAYS AND EKG'S: If you had an EKG or X-rays taken, they have been read by the Emergency Physician. The X-rays and EKG's will also be read by a Radiologist or Special Education Superintendent within 24 hours. If discrepancies are noted, you will be notified by telephone. Please be certain the ED has a correct telephone number & address where you can be reached. Also, realize that some fractures or abnormalities do not show up on initial X-rays. If your symptoms continue, see your physician. ABOUT YOUR LABORATORY TEST: If you had laboratory tests, the results have been reviewed by the Emergency Physician. Some test results (for example cultures) may not be available for several days. You will be contacted if any test result shows you need additional treatment. Please be certain the ED has a correct telephone number and address where you can be reached. ABOUT YOUR MEDICATIONS: You will receive instructions on how to take your medicine on the prescription label you receive. Additional information may be provided by the Pharmacy. If you have questions afterwards, call the ED for clarification or further instructions. Some prescribed medications may cause drowsiness. Do not perform tasks such as driving a car or operating machinery without consulting your Pharmacist. If you feel you need a refill of pain medication, your condition will need re-evaluation. Please do not call for a refill of any medication. ABOUT YOUR SIGNATURE: Signature of this document acknowledges to followin. Understanding that you received emergency treatment and that you may be released before al medical problems are known or treated. Please be certain the ED has a correct phone number & address where you can be reached. 2. Acknowledgement that you will arrange for follow-up care as recommended. 3. Authorization for the Emergency Physician to provide information to your follow-up Physician in order to maximize your care. AT ANY TIME, IF YOUR SYMPTOMS CHANGE SIGNIFICANTLY OR WORSEN OR YOU DEVELOP NEW SYMPTOMS, RETURN TO THE EMERGENCY DEPARTMENT IMMEDIATELY FOR RE-EVALUATION. OUR GOAL IS TO PROVIDE EXCELLENT MEDICAL CARE! WE HOPE THAT WE HAVE MET YOUR EXPECTATIONS DURING YOUR EMERGENCY DEPARTMENT VISIT AND THAT YOU FEEL YOU HAVE RECEIVED EXCELLENT CARE! Constipation Constipation is a common problem. It is especially likely as you get older. Constipation is a common cause of abdominal pain, but sometimes causes no symptoms at all. Causes of constipation include certain medications, dehydration, diets, inactivity, and low-fiber intake. Rarely, it can be a symptom of underlying disease. The physician has evaluated you for this. Avoid constipation by eating a diet high in fiber, fruits, and vegetables. Drink plenty of liquids. Get regular exercise. If possible, avoid constipating medicines like narcotic pain medication. Some vitamin tablets can cause constipation. Stool softeners may be needed for difficult cases. An excellent stool softener is Konsyl which is available at [employer], and [employer]. Just add a teaspoon to a glass of pineapple or orange juice daily or twice a day if needed. Laxatives are useful for occasional constipation. You should use them only when necessary. Too-frequent use can make your bowels dependent on them. Some over the counter laxatives available without prescription are: Milk of Magnesia, 1-2 tablespoons twice a day Dulcolax, 5 mg pill or 10 mg suppository. Citrate of Magnesia, 4-5 ounces a day for a day or two For acute constipation, Fleet's Enemas and Dulcolax suppositories are helpful. Chronic, truck terminal manager use of laxatives or enemas is not a good idea. Your bowel may become dependant on them. You do not need to have a bowel movement every day. Many people do fine with a bowel movement every three or four days. You should call your doctor or return for re-evaluation if you pass blood in the stool, or if you develop fever or increasing abdominal pain. Prescriptions: Methylnaltrexone [place] [Relistor] 450 mg PO QAM 7 Days #21 tablet Referrals: IVETTE RASCON MD [HONORARY] - Follow up as needed I personally performed the services described in the documentation, reviewed and edited the documentation which was dictated to the scribe in my presence, and it accurately records my words and actions.
== END 2020-04-21 03:05 | disposition home or self-care (01) ==
LOC: ER 21:11
DX: K59.03 Drug induced constipation (principal); T40.3X5A Adverse effect of methadone, initial encounter; J45.909 Unspecified asthma, uncomplicated; F17.200 Nicotine dependence, unspecified, uncomplicated; F12.10 Cannabis abuse, uncomplicated; F19.10 Other psychoactive substance abuse, uncomplicated
CPT/HCPCS: 99284; 36415; 83690; 85025; 80053; 74018; J3490

== ENCOUNTER 2020-05-06 22:29 | Emergency (ER) | payer SELFPAY ==
--- NOTE | 2020-05-06 23:09 | ER Document Report ---
ED Medical Screen (RME) - General Chief Complaint: Constipation Stated Complaint: ABDOMINAL PAIN Time Seen by Provider: 05/06/20 23:01 TRAVEL OUTSIDE OF THE [place] IN LAST 30 DAYS: No - HPI Notes: 05/06/20 23:06 39-year-old male to the emergency department with complaints of upper abdominal pain for the past 2 weeks. He states that he has had difficulty with constipation. He states he will get very small nuggets of stool but they are unsatisfactory. He states he is tried an enema and [id number] laxatives without any success. He denies any fevers or chills. He states that he recently started a methadone clinic about a month and a half ago and this is when his constipation got worse. He admits that he used to be a heroin user about 4 months ago. He has not used since he gone to the methadone clinic. I performed a brief medical screening exam on the patient determined that the patient needs further evaluation and management by main side provider. I have placed initial orders to help expedite care. - Related Data Allergies/Adverse Reactions: hydrocodone [Hydrocodone] Adverse Reaction (Mild, Verified 10/01/19 17:10) itching Home Medications: Methadone Past Medical History - Social History Frequency of alcohol use: None Drug Abuse: None - Past Medical History Cardiac Medical History: Reports: Hx Hypertension Denies: Hx Atrial Fibrillation, Hx Congestive Heart Failure, Hx Heart Attack Pulmonary Medical History: Reports: Hx Asthma Endocrine Medical History: Denies: Hx Diabetes Mellitus Type 2, Hx Hypothyroidism Renal/ Medical History: Denies: Hx Peritoneal Dialysis Psychiatric Medical History: Reports: Hx Post Traumatic Stress Disorder Past Surgical History: Reports: Hx Orthopedic Surgery - Abscess removal - Immunizations Hx Diphtheria, Pertussis, Tetanus Vaccination: Yes - 2008 Physical Exam - Vital signs Vitals: Temp Pulse Resp BP Pulse Ox 99.1 F 84 18 143/84 H 96 05/06/20 22:36 05/06/20 22:36 05/06/20 22:36 05/06/20 22:36 05/06/20 22:36 Course - Vital Signs Vital signs: Temp Pulse Resp BP Pulse Ox 99.1 F 84 18 143/84 H 96 05/06/20 22:36 05/06/20 22:36 05/06/20 22:36 05/06/20 22:36 05/06/20 22:36
--- NOTE | 2020-05-06 23:37 | RADIOLOGY REPORT (SQ) ---
CLINICAL INDICATION: constipation, upper abd pain. TECHNIQUE: 2 image(s) of the abdomen. COMPARISON: April 20, 2020. FINDINGS: A nonspecific gas pattern is identified. No evidence of high grade obstruction. No obvious free air on the supine imaging. 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 Significant hard stool within the colon IMPRESSION: No acute intra-abdominal process is identified.
[2020-05-06 23:40] LABS: ABSOLUTE EOSINOPHILS # (AUTO) 0.3 10^3/uL (0.0-0.6); ABSOLUTE LYMPHOCYTES (AUTO) 2.4 10^3/uL (0.5-4.7); ABSOLUTE MONOCYTES (AUTO) 0.8 10^3/uL (0.1-1.4); ABSOLUTE NEUT (AUTO) 4.4 10^3/uL (1.7-8.2); BASOPHILS % (AUTO) 0.6 % (0-2); EOSINOPHILS % (AUTO) 4.2 % (0-6); HEMATOCRIT 39.5 % (37.9-51.0); HEMOGLOBIN 12.9 g/dL (13.5-17.0); LYMPHOCYTES % (AUTO) 30.3 % (13-45); MEAN CORPUSCULAR HGB CONC 32.7 g/dL (32.0-36.0); MEAN CORPUSCULAR VOLUME 77 fl (80-97); MONOCYTES % (AUTO) 10.2 % (3-13); PLATELET COUNT 231 10^3/uL (150-450); RED BLOOD COUNT 5.17 10^6/uL (4.35-5.55); RED CELL DISTRIBUTION WIDTH 16.1 % (11.5-14.0); SEGMENTED NEUTROPHILS % (AUTO) 54.7 % (42-78); TOTAL CELLS COUNTED % (AUTO) 100 %; WHITE BLOOD COUNT 8.1 10^3/uL (4.0-10.5)
[2020-05-06 23:59] LABS: ALBUMIN 4.5 g/dL (3.5-5.0); ALKALINE PHOSPHATASE 50 U/L (38-126); ANION GAP 7 (5-19); ASPARTATE AMINO TRANSFERASE 125 U/L (17-59); BILIRUBIN,DIRECT 0.2 mg/dL (0.0-0.4); BILIRUBIN,TOTAL 1.2 mg/dL (0.2-1.3); BLOOD UREA NITROGEN 26 mg/dL (7-20); CALCIUM 9.1 mg/dL (8.4-10.2); CARBON DIOXIDE 30 mmol/L (22-30); CHLORIDE 100 mmol/L (98-107); GLUCOSE 119 mg/dL (75-110)
[2020-05-07] MEDS ORDERED: MINERAL OIL 30 ML UDCUP PR ONE (00:33)
--- NOTE | 2020-05-07 00:34 | ER Document Report ---
ED GI/ - General Chief Complaint: Constipation Stated Complaint: ABDOMINAL PAIN Time Seen by Provider: 05/06/20 23:01 Notes: Patient is a 39-year-old male who comes emergency department for chief complaints of generalized abdominal pain and distention for the past 2 weeks. He states he has had very small "nuggets" for bowel movements and has not had a significant bowel movement in 2 weeks. He has recently started at the methadone clinic (about 6 weeks ago) and his chronic constipation worsened. He denies vomiting, reports occasional nausea, denies fever, denies any other complaints. He used to use heroin. Patient denies any abdominal surgeries, he denies any daily medications otherwise, he denies any other medical history. TRAVEL OUTSIDE OF THE [place] IN LAST 30 DAYS: No - Related Data Allergies/Adverse Reactions: hydrocodone [Hydrocodone] Adverse Reaction (Mild, Verified 10/01/19 17:10) itching Home Medications: Methadone Past Medical History - General Information source: Patient - Social History Smoking Status: Current Every Day Smoker Frequency of alcohol use: None Drug Abuse: None Lives with: Family Family History: Reviewed & Not Pertinent, Arthritis, CVA, DM, Hyperlipidemia, Hypertension Patient has homicidal ideation: No - Past Medical History Cardiac Medical History: Reports: Hx Hypertension Denies: Hx Atrial Fibrillation, Hx Congestive Heart Failure, Hx Heart Attack Pulmonary Medical History: Reports: Hx Asthma Endocrine Medical History: Denies: Hx Diabetes Mellitus Type 2, Hx Hypothyroidi sm Renal/ Medical History: Denies: Hx Peritoneal Dialysis Psychiatric Medical History: Reports: Hx Post Traumatic Stress Disorder Past Surgical History: Reports: Hx Orthopedic Surgery - Abscess removal - Immunizations Hx Diphtheria, Pertussis, Tetanus Vaccination: Yes - 2008 Review of Systems - Review of Systems Constitutional: No symptoms reported EENT: No symptoms reported Cardiovascular: No symptoms reported Respiratory: No symptoms reported Gastrointestinal: See HPI Genitourinary: No symptoms reported Male Genitourinary: No symptoms reported Musculoskeletal: No symptoms reported Skin: No symptoms reported Hematologic/Lymphatic: No symptoms reported Neurological/Psychological: No symptoms reported Physical Exam - Vital signs Vitals: Temp Pulse Resp BP Pulse Ox 99.1 F 83 16 143/84 H 93 05/06/20 22:35 05/06/20 22:35 05/06/20 22:35 05/06/20 22:35 09/07/20 22:35 - Notes Notes: GENERAL: Alert, interacts well. No acute distress. HEAD: Normocephalic, atraumatic. EYES: Pupils equal, round, and reactive to light. Extraocular movements intact. ENT: Oral mucosa moist, tongue midline. Oropharynx unremarkable. Airway patent. LUNGS: Clear to auscultation bilaterally, no wheezes, rales, or rhonchi. No respiratory distress. Non-tender chest wall. HEART: Regular rate and rhythm. No murmur ABDOMEN: There is mild generalized tenderness of the abdomen, abdomen does seem mildly distended, bowel sounds are quiet throughout but still present. No guarding or rigidity. Otherwise unremarkable. GENITOURINARY: Deferred EXTREMITIES: Moves all 4 extremities spontaneously. No edema, normal radial and dorsalis pedis pulses bilaterally. No cyanosis. BACK: no cervical, thoracic, lumbar midline tenderness. No saddle anesthesia, normal distal neurovascular exam. Moves all extremities in full range of motion. NEUROLOGICAL: Alert and oriented x3. Normal speech. Cranial nerves II through XII grossly intact. Strength 5/5 in all extremities. PSYCH: Normal affect, normal mood. SKIN: Warm, dry, normal turgor. No rashes or lesions noted. Course - Re-evaluation Re-evalutation: Patient with complaints of constipation from chronic opioid use. Abdomen does not suggest acute abdomen, patient is well-appearing and has no signs of distress. CBC nonspecific, chemistry nonspecific with slightly borderline LFTs and renal functioning. KUB shows significant constipation but no obstruction. Patient is requesting an enema. After enema patient had very large results, significant improvement, symptoms completely resolved. Patient was very grateful afterwards. Discussed recommendations, follow-up, return precautions. Patient states understanding and agreement. - Vital Signs Vital signs: Temp Pulse Resp BP Pulse Ox 97.5 F 75 18 136/101 H 98 05/07/20 02:16 05/07/20 02:16 05/07/20 02:16 05/07/20 02:16 05/07/20 02:16 - Laboratory Result Diagrams: 05/06/20 23:30 05/06/20 23:30 Laboratory results interpreted by me: 05/06/20 05/06/20 23:30 23:30 Hgb 12.9 L MCV 77 L MCH 25.0 L RDW 16.1 H Sodium 136.8 L BUN 26 H Creatinine 1.29 H Glucose 119 H AST 125 H ALT 72 H Discharge - Discharge Clinical Impression: Abdominal pain Qualifiers: Abdominal location: generalized Qualified Code(s): R10.84 - Generalized abdominal pain Constipation Qualifiers: Constipation type: unspecified constipation type Qualified Code(s): K59.00 - Constipation, unspecified Condition: Stable Disposition: HOME, SELF-CARE Additional Instructions: You have been treated for constipation. I recommend that you take MiraLAX or similar [id number] stool softener for the next several days and then intermittently as needed in the future. Make sure you eat plenty of fiber, drink plenty of fluids, and exercise. Follow-up with primary care for additional management. Your kidney functioning and liver testing are slightly borderline and should be rechecked with primary care as well. Return if you worsen including severe worsening pain, vomiting, fever, or any other concerning symptoms. Forms: Return to Work
[2020-05-07 02:39] VITALS: BP 136/101
== END 2020-05-07 02:20 | disposition home or self-care (01) ==
LOC: ER 22:29
DX: R10.84 Generalized abdominal pain (principal); K59.00 Constipation, unspecified; F17.200 Nicotine dependence, unspecified, uncomplicated; I10 Essential (primary) hypertension
CPT/HCPCS: 99284; 36415; 83690; 85025; 80053; 74018; J3490